=== PATIENT | male | born 1945 | race Caucasian/White ===

== ENCOUNTER 2016-12-28 07:45 | Emergency (ER) | payer OTHER ==
--- NOTE | 2016-12-28 09:28 | EDPHY ---
H & P Time Seen by Provider: 12/28/16 08:43 HPI/ROS: CHIEF COMPLAINT: Fall HISTORY OF PRESENT ILLNESS: Patient is a 71-year-old male who presents emergency department after falling while walking his dog last evening. Patient states he tripped over his dog in struck his head. He has an sure if he lost consciousness. He does state he was on the ground for 3-5 minutes unable to move. He describes complete paralysis. He slowly developed sensation back into his left arm and then all of his extremities. No numbness or tingling. This morning he denies headache. He has mild upper midline neck pain. He describes bilateral shoulder pain that is worse on the right. No chest pain or shortness of breath. REVIEW OF SYSTEMS: My complete review of systems is negative except as mentioned in the HPI. Past Medical/Surgical History: Includes coronary artery disease, high blood pressure Past surgical history: Right shoulder surgery, coronary artery bypass Smoking Status: Never smoked Physical Exam: Vitals noted GENERAL: Well-appearing, in no acute distress, alert. HEAD: Contusion on the left brow. No crepitus. EYES: PERRLA, EOMI, normal to inspection. ENT: Airway intact, no dental or oral injury, no malocclusion, no hemotympanum , normal external examination. NECK: The trachea is midline. There is no crepitus. Patient has mid upper C- spine tenderness to palpation with no step-off or deformity. RESPIRATORY: Clear to auscultation bilaterally, no rales, rhonchi or wheezing. There is no crepitus or palpable rib fractures. CVS: Regular rate and rhythm, no rubs, murmurs, or gallops. ABDOMEN: Soft, nontender, nondistended, normal bowel sounds, no bruising or abrasions. Pelvis: Stable. No tenderness palpation. Hips full range of motion. GENITAL/RECTAL: Normal external exam. BACK: Normal to inspection, no spinal tenderness, no spinal step off, no notable bruising or abrasions. SKIN: Normal color, warm, dry. No pallor or diaphoresis. EXTREMITIES: Right upper extremity: Patient has mild tenderness to palpation over his right deltoid. There is no deformity or swelling. There is a surgical scar. No visible signs of trauma. Neurovascular intact distally. Left upper extremity: Atraumatic. No visible signs of trauma. No tenderness palpation. Neurovascular intact distally. Right lower extremity: Atraumatic. No visible signs of trauma. No tenderness palpation. Neurovascular intact distally. Left lower extremity: Atraumatic. No visible signs of trauma. No tenderness palpation. Neurovascular intact distally. NEURO/PSYCH: Higher functions: Alert and Oriented x3. Normal speech and cognition. Normal mood and affect. Cranial nerves: Normal as tested. Cerebellar: Normal as tested. Good finger to nose, good [id number], normal gait. Peripheral exam: Normal motor exam. Normal sensation. Normal reflexes. Constitutional: Initial Vital Signs Temperature (C) 36.4 C 12/28/16 07:48 Heart Rate 90 12/28/16 07:48 Respiratory Rate 16 12/28/16 07:48 Blood Pressure 179/94 H 12/28/16 07:48 O2 Sat (%) 96 12/28/16 07:48 O2 Delivery Mode Room Air Allergies/Adverse Reactions: No Known Allergies Allergy (Unverified 12/28/16 07:47) Home Medications: Medication Instructions Recorded Aspirin 81mg (*) 12/28/16 Metoprolol Succinate 12/28/16 Plavix 12/28/16 Medical Decision Making ED Course/Re-evaluation: In the emergency department I discussed possible etiologies with the patient. He was placed in a C-collar triage. CT of the head and neck were ordered. Due the patient's reported paralysis an MRI of the C-spine was ordered. Discussed this with the patient and answered all his questions. I reviewed the patient's laboratory studies. No significant abnormalities. The on exam the patient had no focal neurologic deficits. Awaiting imaging results. CT of the head neck: Please refer the dictated report by Dr. Pineda. No acute disease noted. The patient does have degenerative changes in his spine. 1108: MRI of the C-spine. Please refer the dictated report by Dr. Pineda. The patient does have notable stenosis. There is cord edema C3-C4. No visible fracture or bleeding. Neurosurgery was paged. I discussed the results with the patient. I discussed the case with Dr. Jackson from Neurosurgery. His plan is come to the emergency department to evaluate the patient. I informed the patient of the plan. On recheck he was neurovascular intact distally. No focal neurologic deficits. 1155: I paged Trauma surgery to inform them of the patient's injuries. I discussed the case with Dr. Karthik Serrano. He felt the patient did not need trauma consultation at this time unless he went to the ICU. Dr. Matti Herrera saw the patient. He recommended a [place] collar and follow up with his office. Prescriptions were written by his service prior to leaving. I discussed this plan with the patient. He felt comfortable. He is given warnings prior to leaving. At time of discharge she had no focal neurologic deficits. He will return with worsening symptoms. Differential Diagnosis: My differential includes but is not limited to subarachnoid hemorrhage, subdural hematoma, epidural hematoma, fracture, spinal injury, disc herniation, cord injury - Data Points Laboratory Results: Laboratory Results 12/28/16 08:20 12/28/16 08:20 12/28/16 12/28/16 12/28/16 08:20 08:20 08:20 WBC 6.54 10^3/uL 10^3/uL (3.80-9.50) RBC 4.99 10^6/uL 10^6/uL (4.40-6.38) Hgb 17.9 g/dL H g/dL (13.7-17.5) Hct 48.5 % % (40.0-51.0) MCV 97.2 fL fL (81.5-99.8) MCH 35.9 pg H pg (27.9-34.1) MCHC 36.9 g/dL H g/dL (32.4-36.7) RDW 12.4 % % (11.5-15.2) Plt Count 193 10^3/uL 10^3/uL (150-400) MPV 9.4 fL fL (8.7-11.7) Neut % (Auto) 73.7 % % (39.3-74.2) Lymph % (Auto) 13.3 % L % (15.0-45.0) [place]bon % (Auto) 11.5 % % (4.5-13.0) Eos % (Auto) 0.6 % % (0.6-7.6) Baso % (Auto) 0.6 % % (0.3-1.7) Nucleat RBC Rel Count 0.0 % % (0.0-0.2) Absolute Neuts (auto) 4.82 10^3/uL 10^3/uL (1.70-6.50) Absolute Lymphs (auto) 0.87 10^3/uL L 10^3/uL (1.00-3.00) Absolute Monos (auto) 0.75 10^3/uL 10^3/uL (0.30-0.80) Absolute Eos (auto) 0.04 10^3/uL 10^3/uL (0.03-0.40) Absolute Basos (auto) 0.04 10^3/uL 10^3/uL (0.02-0.10) Absolute Nucleated RBC 0.00 10^3/uL 10^3/uL (0-0.01) Immature Gran % 0.3 % % (0.0-1.1) Immature Gran # 0.02 10^3/uL 10^3/uL (0.00-0.10) PT 12.7 SEC SEC (12.0-15.0) INR 0.96 (0.83-1.16) APTT 32.8 SEC SEC (23.0-38.0) Sodium 138 mEq/L mEq/L (134-144) Potassium 4.7 mEq/L mEq/L (3.5-5.2) Chloride 103 mEq/L mEq/L (97-110) Carbon Dioxide 21 mEq/l L mEq/l (22-31) Anion Gap 14 mEq/L mEq/L (8-16) BUN 11 mg/dL mg/dL (7-23) Creatinine 0.8 mg/dL mg/dL (0.7-1.3) Estimated GFR > 60 Glucose 98 mg/dL mg/dL (70-100) Calcium 9.9 mg/dL mg/dL (8.5-10.4) Departure - Departure Disposition: Home, Routine, Self-Care Clinical Impression: Cervical strain, acute Qualifiers: Encounter type: initial encounter Qualified Code(s): S16.1XXA - Strain of muscle, fascia and tendon at neck level, initial encounter Head contusion Qualifiers: Encounter type: initial encounter Laterality: left Cervical spinal cord injury Qualifiers: Encounter type: initial encounter Qualified Code(s): S14.109A - Unspecified injury at unspecified level of cervical spinal cord, initial encounter Condition: Good Instructions: Gabapentin (By mouth), Oxycodone, Rapid Release (By mouth), Cervical Spinal Stenosis (ED) Additional Instructions: Return with increasing weakness, numbness, headache, neck pain or any other concerns. You had an abnormal MRI which needs close follow-up with Neurosurgery. Take your medications as prescribed as directed. Referrals: YANET GANT [Other] - As per Instructions Dennis Herrera MD [Medical Doctor] - 5-7 days, if not improved
[2016-12-28 09:31] LABS: % IMMATURE GRANULYOCYTES 0.3 % (0.0-1.1); ABSOLUTE IMMATURE GRANULOCYTES 0.02 10^3/uL (0.00-0.10); ADD DIFF? NO; ADD MORPH? NO; ADD SCAN? NO; ATYPICAL LYMPHOCYTE FLAG 10 (0-99); FRAGMENT RBC FLAG 0 (0-99); HEMATOCRIT 48.5 % (40.0-51.0); HEMOGLOBIN 17.9 g/dL (13.7-17.5); LEFT SHIFT FLG 0 (0-99); LIPEMIA HEMOLYSIS FLAG 90 (0-99); MEAN CELL HEMOGLOBIN 35.9 pg (27.9-34.1); MEAN CELL HEMOGLOBIN CONCENTR. 36.9 g/dL (32.4-36.7); MEAN CELL VOLUME 97.2 fL (81.5-99.8); MEAN PLATELET VOLUME 9.4 fL (8.7-11.7); PLATELET CLUMPS FLAG 10 (0-99); PLATELET COUNT 193 10^3/uL (150-400); RED BLOOD CELL COUNT 4.99 10^6/uL (4.40-6.38); RED CELL DISTRIBUTION WIDTH 12.4 % (11.5-15.2)
[2016-12-28 09:32] LABS: INR 0.96 (0.83-1.16); PROTIME(PATIENT) 12.7 SEC (12.0-15.0)
[2016-12-28 09:33] LABS: APTT 32.8 SEC (23.0-38.0)
[2016-12-28 09:40] LABS: ANION GAP 14 mEq/L (8-16); CALCIUM 9.9 mg/dL (8.5-10.4); CARBON DIOXIDE 21 mEq/l (22-31); CHLORIDE 103 mEq/L (97-110); CREATININE 0.8 mg/dL (0.7-1.3); GLOMERULAR FILTRATION RATE > 60; GLUCOSE 98 mg/dL (70-100); POTASSIUM 4.7 mEq/L (3.5-5.2); SODIUM 138 mEq/L (134-144)
[2016-12-28 12:07] VITALS: TEMP 98.2; O2SAT 90
[2016-12-28 12:44] VITALS: BP 153/68; PULSE 78; RESP 16
--- NOTE | 2016-12-28 13:45 | GHP ---
DATE OF ADMISSION: 12/28/2016 CHIEF COMPLAINT: Fall with 3-5 minutes of transient quadriplegia. HISTORY OF PRESENT ILLNESS: The patient is a 71-year-old male, who was seen in the emergency depart [facility] both by myself and Dr. Herrera at 11:34 a.m. on 12/28/2016. He presented to the emergency [facility] after having a fall last night while walking his dog, believed he tripped over the dog. He did strike his head. There was no apparent loss of consciousness. He presents with his at the [facility]. He did state that he was on the ground for approximately 3-5 minutes, unable to move. He de scribed complete paralysis that lasted for that time period. He came in today to the emergency depa rtment. He does have a history of CABG x3, and is on Plavix. His financial systems manager is Dr. Silva. He slowly developed sensation back to his left arm and then all of his extremities. Currently he desc ribes no numbness or tingling. No upper or lower extremity pain except for little bit of pain in rafael th shoulders with the right worse than the left that radiates a little bit down into the deltoid. H e has no weakness at this time. He is ambulating well. He had an MRI of the cervical spine which s howed some cord signal changes at C3-[address] Saira Escobar consulted Dr. Rivera. A page was plac ed to our office, and I saw the patient approximately 15 minutes later in the emergency department. Currently in the emergency department, he has no upper or lower extremity complaints except a littl e bit of pain, as mentioned above, in the right shoulder greater than the left with a little pain ra diating down in the deltoid. He has no weakness in upper or lower extremities. He is able to walk well. He is tolerating a collar fine. He denies any chest pain or shortness of breath. No abdomina l pain or complaints. He has no loss of bowel or bladder. No saddle numbness or anesthesia. He is awake, alert, oriented to name, place, location, date, time, and situation. PAST MEDICAL HISTORY: 1. Coronary artery disease. 2. Hypertension. 3. Right hearing loss, no changes. PAST SURGICAL HISTORY: 1. Right shoulder surgery. 2. Coronary artery bypass graft x3. 3. Pending cataract surgery. MEDICATIONS: 1. Metoprolol. 2. Gout medication. 3. Plavix. ALLERGIES: No known drug allergies. FAMILY HISTORY: Noncontributory. SOCIAL HISTORY: Patient is . He has never smoked. He does not use illicit drugs. No risk factors for HIV or AIDS. IMMUNIZATIONS: Reportedly up to date. TRAVEL: No recent travel. REVIEW OF SYSTEMS: Complete review of systems in conjunction with above noted for the following: H EENT: Mild headache. No diplopia. No blurred vision. No loss of visual field. No hearing loss, ti nnitus or vertigo. PULMONARY: No cough, sputum production, hemoptysis, dyspnea or pleuritic chest p ain. CARDIAC: No chest pain or pressure. No palpitations. GI: No weight loss or gain. No nausea, vomiting, or diarrhea. : No dysuria, hematuria, nocturia, urgency or frequency. NEUROLOGIC: Pat ient denies any dizziness, syncope, seizures, vertigo or current paresthesias. No current weakness. He did have as noted above in the HPI. PSYCHIATRIC: No suicidality or homicidality. PHYSICAL EXAMINATION: GENERAL: This is an awake, alert, oriented male, in no acute distress. He i s able to follow commands appropriately. VITAL SIGNS: Most recent blood pressure 153/68 with a MAP of 96, 78 heart rate, 16 respirations, 90% on room air and a temperature of 36.8. HEENT: Head is normocephalic except for abrasion noted to the left frontal temporal area. It was clean, dressed by emergency room. Pupils are equal, round, reactive to light. EOMIs intact. Full visual muniz by confrontation. Ears patent. Nose is patent. NECK: Soft and supple. No step-off or midline deform ity. Range of motion was not tested. Patient in cervical collar. RESPIRATORY AND CARDIAC: Deferre d. ABDOMEN: Soft, nontender. No peritoneal signs. AND RECTAL: Deferred. NEUROLOGIC: Patient is awake, alert, oriented to name, place, location, date, time, and situation. Memory is intact to immediate, past, and current events. Speech: No aphasia, dysarthria, dysphonia. Cranial nerves 2-1 2 grossly intact. Motor: Patient has 5/5 strength in all muscle groups of bilateral upper and lower extremities to include deltoids, biceps, triceps, brachioradialis, wrist flexion, extensors, headwaitress, intrinsic fingers, iliopsoas, quadriceps, hamstring, plantar flexion, dorsiflexion, EHL testing. Sen sation is grossly intact to light touch throughout all dermatome distributions of upper and lower ex tremities. Negative straight leg raise. Negative HOLLI test. Reflexes of biceps, triceps, brachio radialis, knee jerk, and ankle jerk are 2+/4. Toes are downgoing bilaterally. Gilbert is negative. Babinski negative. No evidence of clonus. MEDICAL DECISION MAKING/DIAGNOSTIC STUDIES: Laboratory tests obtained 12/28/2016 show a white count of 6.54 with an H and H of 17.9 and 48.5, with a platelet count of 193. Coags on 12/28/2016 show a PT of 12.7, INR 0.96 and a PTT of 32.8. Chemistry on 12/28/2016: Sodium 138, potassium 4.7 chlorid e 103, CO2 21, BUN 11, creatinine 0.8, and glucose of 98. CT scan of the head obtained 12/28/2016 shows some mild atrophy. No acute hemorrhage, hydrocephalus or mass effect. There is some cerebral vascular arteriosclerosis. No definite acute infarct. No epi dural or subdural hematoma. CT scan of the cervical spine obtained 12/28/2016 shows no definite fracture. 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 A t C3-4, there is severe central canal stenosis secondary to a degenerative retrolisthesis with dorsa l disc osteophyte complex noted. An MRI was recommended. Shoulder x-rays were reviewed per Dr. Chopra and Dr. Escobar, but no acute abnormality was noted. Cervical spine MRI obtained 12/28/2016 shows at C3-4 there was cord compression and edema secondary to moderate degenerative disk disease with degenerative retrolisthesis, dorsal disc osteophyte compl ex and bilateral facet arthropathy resulting in cord compression deformity with resulting edema, as well as bilateral neural foramina stenosis. At C5-6, there is moderate to severe central canal sten osis and cord compression deformity with moderate to severe bilateral neural foraminal stenosis as w ell. There were some endplate discogenic changes at several levels with C7 superior endplate noted. No acute fracture was noted. IMPRESSION: 1. Transient quadriplegia from fall on 12/27/2016 at 8:00 p.m. 2. Normal neurologic exam with right shoulder and left shoulder pain with some radiation to the del toid with MRI that shows C3-4 and C5-6 stenosis. There are cord changes noted at C3-4 level as well. 3. History of CABG. The patient is on Plavix. PLAN AND DISCUSSION: The patient is a 71-year-old male, who was seen in the emergency department [facility] by myself and Dr. Herrera 11:34 a.m. on 12/28/2016. He was evaluated. He has normal strength, nor mal motor exam. No upper motor neuron signs. He does have some trace pain in the bilateral shoulde rs with the right worse than the left with some radiation into the deltoid. We recommended a good c ervical collar as he had a Heard collar on. I would recommend a [place] Chin J or Vina-type collar . He will wear this at all times. Recommended follow up with us in our office in a couple weeks fo r a recheck and evaluation. I will also start him on gabapentin 300 mg p.o. three times daily. A pr escription for pain medication was written for oxycodone 5 mg, #90, 1-2 tablets every 6-8 hours as n eeded for pain. The patient was given the contact number for our office, was instructed to call our office for a followup appointment. I will speak with our clinical coordinator, Frieda, who will work on getting appointment for him as well to make the transition from the ER to outpatient setting and to our office smoother. Both patient and understand, agree. Dr. Herrera did see and exami ne and evaluate the patient as well. All questions and concerns were answered. /[id number]/MODL
== END 2016-12-28 12:51 | disposition home or self-care (01) ==
DX: S00.93XA Contusion of unspecified part of head, initial encounter (principal); S16.1XXA Strain of muscle, fascia and tendon at neck level, initial encounter; S14.109A Unspecified injury at unspecified level of cervical spinal cord, initial encounter; I25.810 Atherosclerosis of coronary artery bypass graft(s) without angina pectoris; Z79.82 Long term (current) use of aspirin; W01.198A Fall on same level from slipping, tripping and stumbling with subsequent striking against other object, initial encounter; Y99.8 Other external cause status; Y93.01 Activity, walking, marching and hiking

== ENCOUNTER → 2017-01-23 | Outpatient (CLI) | payer OTHER, MEDICARE | LOC: BHFA 09:45 | PROVIDERS: ATTEND Internal Medicine Interventional Cardiology | DX: Z01.810 Encounter for preprocedural cardiovascular examination (principal); I21.29 ST elevation (STEMI) myocardial infarction involving other sites ==

== ENCOUNTER 2017-01-30 12:48 | Observation (INO) | payer OTHER, MEDICARE ==
[2017-01-30] MEDS ORDERED: FAMOTIDINE 20 MG TAB PO ONE (12:53)
[2017-01-30] MEDS ORDERED: NS 1,000 ML IV ONE (12:53)
[2017-01-30] MEDS ORDERED: DIAZEPAM 5 MG TAB PO ONE (12:53)
[2017-01-30] MEDS ORDERED: diphenhydrAMINE 25 MG CAP PO ONE (12:53)
[2017-01-30] MEDS ORDERED: ASPIRIN EC 325 MG TAB PO ONE (12:53)
--- NOTE | 2017-01-30 13:19 | CPEKG ---
Heart Rate: 69 RR Interval: 870 P-R Interval: 156 QRSD Interval: 108 QT Interval: 424 QTC Interval: 455 P [place]: 61 QRS [place]: 18 T Wave [place]: 38 EKG Severity - BORDERLINE ECG - EKG Impression: SINUS RHYTHM EKG Impression: PROBABLE LEFT ATRIAL ABNORMALITY EKG Impression: MINIMAL ST ELEVATION, ANTERIOR LEADS Electronically Signed By: Aneudy Anand 30-Jan-2017 20:46:33
[2017-01-30] MEDS ORDERED: CLOPIDOGREL BISULFATE 75 MG TAB ONE (13:38)
[2017-01-30 13:49] LABS: % IMMATURE GRANULYOCYTES 0.4 % (0.0-1.1); ABSOLUTE IMMATURE GRANULOCYTES 0.03 10^3/uL (0.00-0.10); ADD DIFF? NO; ADD MORPH? NO; ADD SCAN? NO; ATYPICAL LYMPHOCYTE FLAG 10 (0-99); FRAGMENT RBC FLAG 0 (0-99); HEMATOCRIT 47.4 % (40.0-51.0); HEMOGLOBIN 16.4 g/dL (13.7-17.5); LEFT SHIFT FLG 0 (0-99); LIPEMIA HEMOLYSIS FLAG 90 (0-99); MEAN CELL HEMOGLOBIN 33.7 pg (27.9-34.1); MEAN CELL HEMOGLOBIN CONCENTR. 34.6 g/dL (32.4-36.7); MEAN CELL VOLUME 97.5 fL (81.5-99.8); PLATELET CLUMPS FLAG 0 (0-99); PLATELET COUNT 176 10^3/uL (150-400); RED BLOOD CELL COUNT 4.86 10^6/uL (4.40-6.38); RED CELL DISTRIBUTION WIDTH 11.9 % (11.5-15.2)
[2017-01-30 14:04] LABS: INR 1.01 (0.83-1.16); PROTIME(PATIENT) 13.2 SEC (12.0-15.0)
[2017-01-30 14:05] LABS: ANION GAP 12 mEq/L (8-16); CALCIUM 9.6 mg/dL (8.5-10.4); CARBON DIOXIDE 22 mEq/l (22-31); CHLORIDE 106 mEq/L (97-110); CHOLESTEROL 216 mg/dL (140-220); CHOLESTEROL/HDL RATIO 2.81 RATIO (1.00-4.97); CREATININE 0.8 mg/dL (0.7-1.3); GLOMERULAR FILTRATION RATE > 60; GLUCOSE 90 mg/dL (70-100); HIGH DENSITY LIPOPROTEIN 77 mg/dL (40-65); LDL/HDL RATIO 1.52 RATIO (1.00-3.64); LOW DENSITY LIPOPROTEIN 117 mg/dL (80-100); MAGNESIUM 2.1 mg/dL (1.6-2.3); NON-HIGH DENSITY LIPOPROTEIN 139 mg/dL (90-129); POTASSIUM 4.6 mEq/L (3.5-5.2); SODIUM 140 mEq/L (134-144); TRIGLYCERIDE 114 mg/dL (40-150); VERY LOW DENSITY LIPOPROTEINS 22 mg/dL (8-25)
[2017-01-30] MEDS ORDERED: fentaNYL 100 MCG/2 ML INJ ONE ×2 (14:53→15:34)
[2017-01-30] MEDS ORDERED: LIDOCAINE 1% 30 ML SDV ONE (14:53)
[2017-01-30] MEDS ORDERED: MIDAZOLAM 2 MG/2 ML VIAL ONE ×2 (14:54→15:35)
[2017-01-30] MEDS ORDERED: IOPAMIDOL (ISOVUE 370) 100 ML BTL IV ONE ×2 (14:55→15:38)
[2017-01-30] MEDS ORDERED: BIVALIRUDIN 250 MG/5 ML VIAL IV ONE (15:33)
[2017-01-30] MEDS ORDERED: NITROGLYCERIN 1,500 MCG/15 ML VIAL MISC ONE (15:39)
[2017-01-30] MEDS ORDERED: HYDROCODONE/APAP 5/325 TAB PO PRN (18:23)
[2017-01-30] MEDS ORDERED: OXYCODONE/APAP 5/325 TAB PO PRN (18:24)
[2017-01-30] MEDS ORDERED: ONDANSETRON 4 MG/2 ML VIAL IVP PRN (18:25)
[2017-01-30] MEDS ORDERED: NITROGLYCERIN 0.4 MG BTL SL PRN (18:26)
[2017-01-30] MEDS: METOPROLOL TARTRATE 25 MG TAB PO SCH (20:44)
--- NOTE | 2017-01-30 23:36 | CPIP ---
[f rep st] INVASIVE CARDIAC PROCEDURE DATE OF PROCEDURE: 01/30/2017 PROCEDURES: 1. Coronary angiography. 2. Bypass graft angiography. 3. Left ventriculography. INDICATION: 1. Known coronary artery disease status post previous bypass grafting surgery. 2. High risk abnormal nuclear stress test. ACCESS: Patient was prepped and draped in sterile fashion. 1% lidocaine was used to anesthetize th e right inguinal region. A 6-Tongan introducer sheath was placed selectively into the right common femoral artery via modified Seldinger technique. CORONARY ANGIOGRAPHY: A 6-Tongan JL4 was advanced to the left main coronary artery and images obtai andi. The left main coronary artery bifurcated into an LAD and circumflex coronary arteries. The le ft main coronary artery had a distal 80% stenosis present. The left anterior descending coronary ar rupesh was diffusely diseased. In the proximal portion of the left anterior descending coronary arter y, there was a discrete 80% stenosis present. In the mid vessel there was a discrete 90% stenosis p resent. The first diagonal artery was a lerslria-ez-nsvob size vessel. The first diagonal artery h ad a proximal 75% stenosis present. The second diagonal artery was a smaller vessel. The 2nd diago nal artery was 100% occluded at its ostium. The distal vessel was being filled via saphenous vein g raft to diagonal artery. The circumflex coronary artery is 100% occluded in its ostial segment. Di stal flow is via pfgz-lm-usrt collaterals. A 6-Tongan JR4 was advanced to the right coronary artery and images obtained. The right coronary artery was dominant. The right coronary artery was 100% o ccluded in the ostial segment. Distal flow was via saphenous vein graft to right coronary artery. BYPASS GRAFT ANGIOGRAPHY: A 6-Tongan JR4 was advanced through the saphenous vein graft to the 2nd d iagonal artery. The saphenous vein graft to 2nd diagonal artery was widely patent. The catheter wa s then advanced through the saphenous vein graft to the right coronary artery. The saphenous vein g raft to the right coronary artery was widely patent. The catheter was then advanced to the ARNDT to LAD graft. The ARNDT to LAD graft is 100% occluded. LEFT VENTRICULOGRAPHY: A 6-Tongan pigtail catheter was advanced in the left ventricle and images ob tained. Left ventricle was normal size and had reduced systolic function. Estimated ejection fract ion was 35%. COMPLICATIONS: None. CONCLUSIONS: 1. Left main and 3 vessel coronary artery disease. 2. Patent saphenous vein graft to right coronary artery. 3. Patent saphenous vein graft to 2nd diagonal artery. 4. Reduced left ventricular systolic function with an estimated ejection fraction of 35%. 5. Plan is to present at cardiovascular conference for revascularization options. /[id number]/MODL
[2017-01-31 05:49] VITALS: RESP 18
[2017-01-31 07:03] VITALS: BP 139/71; PULSE 68; TEMP 98; O2SAT 94
[2017-01-31] MEDS: METOPROLOL TARTRATE 25 MG TAB PO SCH (09:14)
--- NOTE | 2017-01-31 12:52 | GDS ---
[f rep st] DISCHARGE SUMMARY ADMISSION DIAGNOSES: 1. Abnormal nuclear stress test. 2. Planned cardiac angiogram with possible stent. 3. Status post remote coronary artery bypass graft. 4. Hypertension. DISCHARGE DIAGNOSES: 1. 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 2. New onset cardiomyopathy with ejection fraction 35%. 3. Hypertension. HOSPITAL COURSE: This gentleman was seen in clinic for a surgical consult for planned cervical spine neck surgery. He had not been seen in clinic for several years. He was being followed by his PCP. He had no chest pain or anginal symptoms at that time. A nuclear stress test was ordered for further cardiac evaluation prior to cervical spine surgery. Earlier this week, he had a nuclear treadmill stress test at the clinic, which was read as abnormal with ST and T-wave changes. He was set up for cardiac angiogram on 01/30/2017. Dr. Aneudy Perez did find that there was occlusion of the ARNDT to LAD graft. His ejection fraction was diminished, estimated at 35%. He was recovered, and Dr. Perez visited with he and his about the need for further intervention of the total occlusion of the ARNDT to LAD graft, consideration for possible redo bypass. Dr. Perze asked that he visit with Dr. Solo Villaseñor, cardiovascular surgeon, regarding this. He and his did visit with Dr. Villaseñor last evening. No decisions have been made at this point. The plan is to take it to cardiac case conference for further cardiology recommendations. He has done well post cardiac angiogram. His monitor shows a regular sinus rhythm. He has been up ambulating with no shortness of breath, chest pain or dizziness. At this time, he currently is stable for discharge. MEDICATIONS: He will go home on Plavix 75 mg daily, Lopressor 12.5 mg twice daily, aspirin 81 mg daily, herbal supplements daily. ALLERGIES: He has no known allergies. PHYSICAL EXAM: VITAL SIGNS: On day of discharge, blood pressure 139/71, heart rate 68 and regular, oxygen saturation 94%. Temperature 36.7 Celsius. Telemetry shows a regular sinus rhythm with no arrhythmias. CARDIAC: Heart rate is regular. No murmurs, rubs, gallops. RESPIRATORY: Lung sounds are clear to auscultation. No wheezes, rales, or rhonchi. EXTREMITIES: Peripheral extremities, no edema. Peripheral pulses 2+ bilaterally. Right groin site has no hematoma, no bleeding or ecchymosis. DISCHARGE PLAN: He will continue on his Plavix at this time. Should the decision for surgery be determined, he will need to stop the Plavix 5-7 days prior to surgery. He will continue on Lopressor at 12.5 mg twice daily at this time. Further recommendations regarding the diminished ejection fraction, which is at 35% and a new finding. He will likely be switched to carvedilol for management of the ejection fraction, if it remains reduced. Dr. Perez will present this case at Case Conference tomorrow, February 02, 2017. At that time, he will get further recommendations from the cardiology group, along with Dr. Villaseñor, who has already visited with Dr. Perez and with the patient. Dr. Aneudy Perez will call the patient tomorrow with the recommended decision and with further options for treatment. At this time, he currently is stable for discharge. /[id number]/MODL MTDD
== END 2017-01-31 11:33 | disposition home or self-care (01) ==
LOC: FCATH 12:48 → F2W 17:12
PROVIDERS: ADMIT Internal Medicine Cardiovascular Disease; ATTEND Internal Medicine Cardiovascular Disease
PROC: 4A023N7 Measurement of Cardiac Sampling and Pressure, Left Heart, Percutaneous Approach (ICD-10-PCS; principal; 2017-01-30)
PROC: B2031ZZ Plain Radiography of Multiple Coronary Artery Bypass Grafts using Low Osmolar Contrast (ICD-10-PCS; principal; 2017-01-30)
PROC: B2151ZZ Fluoroscopy of Left Heart using Low Osmolar Contrast (ICD-10-PCS; principal; 2017-01-30)
DX: R94.39 Abnormal result of other cardiovascular function study (principal); Z01.810 Encounter for preprocedural cardiovascular examination; I25.810 Atherosclerosis of coronary artery bypass graft(s) without angina pectoris; I25.82 Chronic total occlusion of coronary artery; I10 Essential (primary) hypertension; E78.5 Hyperlipidemia, unspecified; I25.2 Old myocardial infarction; M10.9 Gout, unspecified; Z95.1 Presence of aortocoronary bypass graft; Z95.5 Presence of coronary angioplasty implant and graft; Z79.82 Long term (current) use of aspirin
CPT/HCPCS: 93005; 93459; J1644; J2250; J3010; Q9967; A9500; J0583

== ENCOUNTER → 2017-01-30 | Outpatient (CLI) | payer OTHER, MEDICARE | LOC: BHFA 09:30 | PROVIDERS: ATTEND Internal Medicine Cardiovascular Disease | DX: Z01.810 Encounter for preprocedural cardiovascular examination (principal); I25.10 Atherosclerotic heart disease of native coronary artery without angina pectoris | CPT/HCPCS: 78452; 93017; A9500 ==

== ENCOUNTER 2017-02-07 13:30 | Inpatient (IN) | payer OTHER, MEDICARE ==
[2017-02-12] MEDS ORDERED: VERAPAMIL 5 MG, NITROGLYCERIN 2.5 MG, HEPARIN 500 UNIT, SODIUM BICARBONATE 0.2 MEQ in L... MISC ONE (06:00)
[2017-02-12] MEDS ORDERED: MANNITOL 25% 12.5 GM/50 ML VIAL IV ONE (06:00)
[2017-02-12] MEDS ORDERED: niCARdipine/NACL 200 ML IV SCH (06:00)
[2017-02-12] MEDS ORDERED: CITRATE DEXTROSE SOLN 500 ML BAG MISC ONE (06:00)
[2017-02-12] MEDS ORDERED: PHENYLEPHRINE HCL 50 MG in NS 250 ML IV ONE (06:00)
[2017-02-12] MEDS ORDERED: AMINOCAPROIC ACID 5 GM/20 ML VIAL IV ONE (06:00)
[2017-02-12] MEDS ORDERED: NOREPINEPHRINE BITARTRATE 16 MG in NS 250 ML IV ONE (06:00)
[2017-02-12] MEDS ORDERED: NS 1,000 ML IV ONE (06:00)
[2017-02-12] MEDS ORDERED: LIDOCAINE 1% 5 ML SDV ID PRN (06:00)
[2017-02-12] MEDS ORDERED: SODIUM BICARBONATE 20 MEQ, LIDOCAINE 1% 10 ML in NORMOSOL-R 1,000 ML MISC ONE (06:00)
[2017-02-12] MEDS ORDERED: CHLORHEXIDINE GLUC HIBICLENS 118 ML BTL TP SCH (06:00)
[2017-02-12] MEDS ORDERED: MUPIROCIN 2% 22 GM OINT NS ONE (06:00)
[2017-02-12] MEDS ORDERED: ceFAZolin 2 GM/DEXTROSE 100 ML IV ONE (06:00)
[2017-02-12] MEDS ORDERED: DOBUTamine 500 MG in D5W 250 ML IV SCH (06:00)
[2017-02-12] MEDS ORDERED: INSULIN REGULAR HUMAN 100 UNIT in NS 100 ML IV ONE (06:00)
[2017-02-12] MEDS ORDERED: LIDOCAINE 2% 100 MG/5 ML SYR ONE (10:34)
[2017-02-12] MEDS ORDERED: CITRATE DEXTROSE SOLN 500 ML BAG ONE (10:34)
[2017-02-12] MEDS ORDERED: CALCIUM CHLORIDE 1 GM/10 ML INJ ONE ×2 (10:34→10:48)
[2017-02-12] MEDS ORDERED: AMINOCAPROIC ACID 5 GM/20 ML VIAL ONE ×2 (10:34→10:49)
[2017-02-12] MEDS ORDERED: ALBUMIN 5% 250 ML BOTTLE IV ONE (10:34)
[2017-02-12] MEDS ORDERED: AMIODARONE HCL 150 MG/3 ML VIAL ONE ×2 (10:35→10:50)
[2017-02-12] MEDS ORDERED: methylPREDNISolone SOD SUCC 1 GM/8 ML VIAL ONE (10:35)
[2017-02-12] MEDS ORDERED: HEPARIN 10,000 UNIT/10 ML MDV ONE ×2 (10:35→10:50)
[2017-02-12] MEDS ORDERED: MAGNESIUM SULFATE 1 GM/2 ML VIAL ONE (10:35)
[2017-02-12] MEDS ORDERED: MILRINONE/DEXTROSE/100 ML BAG IV ONE (10:48)
[2017-02-12] MEDS ORDERED: PROTAMINE SULFATE 50 MG/5 ML VIAL IVP ONE (10:48)
[2017-02-12] MEDS ORDERED: CEFAZOLIN 2 GM/DEXTROSE/100 ML BAG IV ONE ×2 (10:48→12:02)
[2017-02-12] MEDS ORDERED: POTASSIUM Cl (KCl) 20 MEQ/50 ML BAG IV ONE (10:49)
[2017-02-12] MEDS ORDERED: DOPamine/DEXTROSE/250 ML BAG IV ONE (10:49)
[2017-02-12] MEDS ORDERED: NA BICARBONATE 50 MEQ/50 ML VIAL ONE (10:49)
[2017-02-12] MEDS ORDERED: ADENOSINE 6 MG/2 ML VIAL ONE (10:50)
[2017-02-12] MEDS ORDERED: niCARdipine/NACL/200 ML BAG IV ONE (10:50)
[2017-02-12] MEDS ORDERED: ceFAZolin 1 GM VIAL ONE (10:51)
[2017-02-12] MEDS ORDERED: MUPIROCIN 2% 22 GM OINT ONE (10:53)
[2017-02-12] MEDS ORDERED: fentaNYL 250 MCG/5 ML INJ ONE (11:51)
[2017-02-12] MEDS ORDERED: PROPOFOL/EMULSION 500 MG/50 ML BOTTLE IV ONE (11:51)
[2017-02-12] MEDS ORDERED: HYDROmorphONE/DILAUDID 2 MG/ML INJ ONE ×2 (11:52→16:44)
[2017-02-12] MEDS ORDERED: VERAPAMIL 5 MG/2 ML VIAL ONE (11:57)
[2017-02-12] MEDS ORDERED: PAPAVERINE HCL 60 MG/2 ML SDV ONE (11:57)
[2017-02-12] MEDS ORDERED: MINERAL OIL 10 ML VIAL TP ONE (11:57)
[2017-02-12] MEDS ORDERED: MIDAZOLAM 2 MG/2 ML VIAL ONE (12:05)
[2017-02-12] MEDS ORDERED: MAGNESIUM SULF 2 GM/WATER 50 ML BAG IV ONE (12:45)
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
[2017-02-12] MEDS ORDERED: ONDANSETRON 4 MG/2 ML VIAL IVP PRN (17:54)
[2017-02-12] MEDS ORDERED: ACETAMINOPHEN 325 MG TAB PO PRN (17:54)
[2017-02-12] MEDS ORDERED: BISACODYL 10 MG SUPP PR PRN (17:54)
[2017-02-12] MEDS ORDERED: D50W 25 GM/50 ML SYR IVP PRN (17:54)
[2017-02-12] MEDS ORDERED: METOCLOPRAMIDE 10 MG/2 ML VIAL IVP PRN (17:54)
[2017-02-12] MEDS ORDERED: PANTOPRAZOLE SODIUM 40 MG in NS 100 ML IV ONE (17:54)
[2017-02-12] MEDS ORDERED: LACTULOSE 20 GM/30 ML UDCUP PO PRN (17:54)
[2017-02-12] MEDS ORDERED: POLYETHYLENE GLYCOL 3350 17 GM PKT PO PRN (17:54)
[2017-02-12] MEDS ORDERED: POTASSIUM Cl (KCl) 50 ML IV PRN (17:54)
[2017-02-12] MEDS ORDERED: MAGNESIUM SULF 2 GM/WATER 50 ML IV ONE (17:54)
[2017-02-12] MEDS ORDERED: ACETAMINOPHEN 650 MG SUPP PR PRN (17:54)
[2017-02-12] MEDS ORDERED: ONDANSETRON DISINTEGRATING 4 MG TAB PO PRN (17:54)
[2017-02-12] MEDS ORDERED: CEPACOL LOZENGE PO PRN (17:54)
[2017-02-12] MEDS ORDERED: SODIUM CL NASAL 45 ML BTL EACHNARE PRN (17:54)
[2017-02-12] MEDS ORDERED: MAGNESIUM HYDROXIDE 30 ML UDCUP PO PRN (17:54)
[2017-02-12] MEDS ORDERED: fentaNYL 100 MCG/2 ML INJ IVP PRN (17:54)
[2017-02-12] MEDS ORDERED: MEPERIDINE 25 MG/ML SYR IVP PRN (17:54)
[2017-02-12] MEDS ORDERED: NS 1,000 ML IV SCH (18:00)
[2017-02-12] MEDS ORDERED: INSULIN REGULAR HUMAN 100 UNIT in NS 100 ML IV SCH (18:00)
[2017-02-12] MEDS ORDERED: ALBUMIN 5% 500 ML BOTTLE IV ONE (18:26)
[2017-02-12] MEDS ORDERED: ALBUMIN 5% 500 ML IV ONE (18:30)
[2017-02-12] MEDS ORDERED: DEXMEDETOMIDINE HCL 400 MCG in NS 100 ML IV SCH (19:00)
[2017-02-12 20:13] LABS: BASE EXCESS -2.7 mEq/L (-2.5-2.5); BICARBONATE 23 mEq/L (22-26); MEASURED OXYGEN SATURATION 94 % (92-95); PCO2 42 mmHg (34-38); PO2 73 mmHg (65-75); TCO2 24 mEq/L (23-27)
[2017-02-12 20:14] LABS: END TIDAL CO2 33; SIMV YES
[2017-02-12 20:15] LABS: O2 CONCENTRATIION 70 % (0-100); P/F RATIO 104 RATIO; PATIENT RATE 18; PIP 27.6; PRESSURE SUPPORT 10
[2017-02-12] MEDS: FAMOTIDINE 20 MG/NACL 50 ML IV SCH (20:21)
[2017-02-12] MEDS: CHLORHEXIDINE GLUCONATE 15 ML UDL PO SCH (22:13)
[2017-02-12] MEDS: ceFAZolin 2 GM/DEXTROSE 100 ML IV SCH (22:13)
[2017-02-12] MEDS: MUPIROCIN 2% 22 GM OINT NS SCH (22:14)
[2017-02-12 22:15] LABS: BICARBONATE 22 mEq/L (22-26); MEASURED OXYGEN SATURATION 94 % (92-95); PCO2 37 mmHg (34-38); PO2 73 mmHg (65-75); TCO2 23 mEq/L (23-27)
[2017-02-12 22:18] LABS: SIMV YES
[2017-02-12 22:19] LABS: PATIENT RATE 18; PRESSURE SUPPORT 10
[2017-02-12 22:20] LABS: END TIDAL CO2 30
[2017-02-12 22:21] LABS: O2 CONCENTRATIION 50 % (0-100); P/F RATIO 146 RATIO
[2017-02-12] MEDS: ALBUMIN 5% 250 ML IV PRN ×2 (23:12→23:38)
[2017-02-12 23:50] LABS: BASE EXCESS -1.6 mEq/L (-2.5-2.5); BICARBONATE 23 mEq/L (22-26); MEASURED OXYGEN SATURATION 92 % (92-95); PCO2 39 mmHg (34-38); PO2 66 mmHg (65-75); TCO2 24 mEq/L (23-27)
[2017-02-12 23:52] LABS: END TIDAL CO2 31; O2 CONCENTRATIION 40 % (0-100); P/F RATIO 165 RATIO; PATIENT RATE 18; SIMV YES
[2017-02-12 23:53] LABS: PRESSURE SUPPORT 10
[2017-02-13] MEDS ORDERED: NOREPINEPHRINE BITARTRATE 16 MG in NS 250 ML IV SCH (00:30)
[2017-02-13] MEDS ORDERED: ALBUMIN 5% 500 ML IV ONE (00:30)
[2017-02-13 04:14] LABS: CALCULATED OXYGEN SATURATION 99 % (92-95)
[2017-02-13 04:14] LABS: CALCULATED OXYGEN SATURATION 93 % (92-95)
[2017-02-13] MEDS: HYDROCODONE/APAP 5/325 TAB PO PRN ×7 (05:07→21:29)
[2017-02-13] MEDS: ceFAZolin 2 GM/DEXTROSE 100 ML IV SCH ×3 (05:10→21:36)
--- NOTE | 2017-02-13 05:18 | GOP ---
[f rep st] OPERATIVE REPORT DATE OF OPERATION: 02/12/2017 SURGEON: Solo Villaseñor DO BLOWING WEASAND: Joi Garrison, PAC. ANESTHESIOLOGIST: Yury Cruz MD. PREOPERATIVE DIAGNOSIS: Severe 3-vessel disease with moderate to severe LV dysfunction and moderate mitral insufficiency. POSTOPERATIVE DIAGNOSIS: Severe 3-vessel disease with moderate to severe LV dysfunction and moderat e mitral insufficiency. PROCEDURE PERFORMED: 1. Reoperation coronary bypass grafting x4 with right internal mammary artery to the LAD, saphenous vein graft to the first diagonal, lateral circumflex, and PDA. 2. Mitral ring annuloplasty with a #32 Physio annuloplasty ring. 3. Endoscopic vein harvest. 4. This was performed as a reoperation. FINDINGS: Patient was noted to have severe 3-vessel disease. His previous left internal mammary ar rupesh to the LAD was occluded. His ejection fraction was 35% preoperatively. Intraoperative transes ophageal echo confirmed worse mitral regurg than anticipated preoperatively from echoes, and it was reviewed by Dr. Perez, who felt it was at least moderate and should be repaired. I got verbal cons ent from his since that was not part of the preoperative planning. DESCRIPTION OF PROCEDURE: He was prepped and draped in sterile classical manner. Repeat median deng rnotomy was performed. Marsupialization of the heart was then conducted without difficulty, avoidin g the previous vein grafts. The vein graft to the diagonal was an extremely small diagonal. It was widely patent and considered an insignificant vessel. The first diagonal was a 1.5 mm vessel, the lateral circumflex was a 2 mm vessel, and the PDA was a 3 mm vessel with a diseased vein graft to th at. After marsupializing the heart, the right internal mammary artery was harvested. It was a good quality vessel with good flow. He was heparinized. We then cannulated the patient with bicaval ca nnulas based on the transesophageal echo intraoperatively. Cardiopulmonary bypass was begun, and th en cardioplegic arrest was obtained with antegrade cardioplegia, retrograde cardioplegia, topical hy pothermia, and systemic cooling. We then exposed the grafts, deciding where we were going to graft the patient, and the circumflex was a diffusely diseased vessel in its proximal course with multiple stents extending quite far out. Where grafted, it was a roughly 2 mm vessel. The vein was then br ought off the ascending aorta without difficulty. We then grafted the diagonal, which was a 1.5 mm vessel. It had decent flow and was brought off the ascending aorta with continuous running 5-0 Prol dhaval. I then brought the right internal mammary artery across the midline and grafted it to the dist al 3rd of the LAD, which was a 2.5 mm vessel. The mammary had brisk flow. It was tacked to the epi cardium. I then grafted the previously grafted vein graft to the PDA which, although patent, had so me moderately diffuse disease noted on inspection. For that reason, I felt it was a more important vessel, and I used vein graft to replace that. I then began rewarming while the mitral valve was ex posed. Through the right superior pulmonary vein, a retractor was placed. There was no significant chordal elongation, just annular dilatation on a relatively normal-appearing, slightly myxomatous-a ppearing valve. Regurgitation was central through multiple jets upon distending the ventricle. Sujatha uloplasty sutures were placed circumferentially. The patient was sized for a 32 ring which was sutu red in place without difficulty. There was no regurgitation of significance upon distending the saad tricle. Left atrium was closed. CO2 had been infused throughout the procedure. The crossclamp was removed with suction on the ascending aortic vent. It should be noted that vein was harvested endo scopically from the leg by RALF Thurston, who first assisted throughout the procedure. We then spent some time de-airing the patient through the apex and the ascending aortic vent. When no further ai r was identified, he was easily weaned from bypass. The heparin was reversed with protamine. The m itral valve revealed an insignificant wisp of insufficiency with good coaptation and good relatively preserved LV function with an ejection fraction of 35% to 40% as preoperatively. We attempted to c lose what thymic fat that remained from the 1st operation, although the pericardium had not been edelmira sed at that time. We were able to cover most of the grafts coming off the aorta and part of the lef t ventricle. Two mediastinal and 1 right pleural drains were placed. The thymic fat and pericardiu m were closed. The chest was closed in standard fashion. The patient was returned to ICU in stable condition. /[id number]/MODL
[2017-02-13 05:37] LABS: % IMMATURE GRANULYOCYTES 0.6 % (0.0-1.1); ABSOLUTE IMMATURE GRANULOCYTES 0.04 10^3/uL (0.00-0.10); ADD DIFF? NO; ADD MORPH? NO; ADD SCAN? NO; ATYPICAL LYMPHOCYTE FLAG 0 (0-99); FRAGMENT RBC FLAG 0 (0-99); HEMATOCRIT 21.8 % (40.0-51.0); HEMOGLOBIN 7.4 g/dL (13.7-17.5); LEFT SHIFT FLG 10 (0-99); LIPEMIA HEMOLYSIS FLAG 90 (0-99); MEAN CELL HEMOGLOBIN 34.7 pg (27.9-34.1); MEAN CELL HEMOGLOBIN CONCENTR. 33.9 g/dL (32.4-36.7); MEAN CELL VOLUME 102.3 fL (81.5-99.8); MEAN PLATELET VOLUME 10.4 fL (8.7-11.7); PLATELET CLUMPS FLAG 0 (0-99); PLATELET COUNT 69 10^3/uL (150-400); RED BLOOD CELL COUNT 2.13 10^6/uL (4.40-6.38); RED CELL DISTRIBUTION WIDTH 12.6 % (11.5-15.2)
[2017-02-13 05:51] LABS: ANION GAP 5 mEq/L (8-16); CALCIUM 6.4 mg/dL (8.5-10.4); CARBON DIOXIDE 21 mEq/l (22-31); CHLORIDE 119 mEq/L (97-110); CREATININE 0.6 mg/dL (0.7-1.3); GLOMERULAR FILTRATION RATE > 60; GLUCOSE 74 mg/dL (70-100); POTASSIUM 3.6 mEq/L (3.5-5.2); SODIUM 145 mEq/L (134-144)
[2017-02-13] MEDS: HEPARIN 5,000 UNIT/0.5 ML SYR SC SCH ×5 (06:12→22:03)
[2017-02-13 06:35] LABS: HEMATOCRIT 30.7 % (40.0-51.0); HEMOGLOBIN 10.4 g/dL (13.7-17.5); MEAN CELL HEMOGLOBIN 33.9 pg (27.9-34.1); MEAN CELL HEMOGLOBIN CONCENTR. 33.9 g/dL (32.4-36.7); RED BLOOD CELL COUNT 3.07 10^6/uL (4.40-6.38); RED CELL DISTRIBUTION WIDTH 12.6 % (11.5-15.2)
[2017-02-13 06:45] LABS: ANION GAP 10 mEq/L (8-16); CALCIUM 7.8 mg/dL (8.5-10.4); CARBON DIOXIDE 23 mEq/l (22-31); CHLORIDE 111 mEq/L (97-110); CREATININE 0.8 mg/dL (0.7-1.3); GLOMERULAR FILTRATION RATE > 60; GLUCOSE 123 mg/dL (70-100); POTASSIUM 4.3 mEq/L (3.5-5.2); SODIUM 144 mEq/L (134-144)
[2017-02-13] MEDS ORDERED: ALBUMIN 5% 250 ML IV ONE ×2 (08:00→09:00)
--- NOTE | 2017-02-13 08:01 | SOAPPROG ---
SOAP Progress Note Assessment/Plan: POD #1: Reoperation CABGx4 (BEVERLY-LAD, SVG-D1, SVG-circ, SVG-PDA), MV annuloplasty with #32 Physio ring, EVH RLE Severe 3VD with occluded ARNDT-LAD graft s/p reop CABGx4 - Wean Levophed as tolerated - BB when appropriate, ASA/statin for secondary prevention - FC out, AL to remain, CT to suction for air leak - Ambulation with PT - SCDs/heparin SQ for DVT porphylaxis Moderate MR s/p MVR MV annuloplasty with #32 Physio ring - Coumadin for INR goal 2-3 x 3 months Acute blood loss anemia - No transfusions needed, monitor ICM with EF 35% - BB/ACEi/diuretics when appropriate h/o cervical cord compression currently with no deficits pending spinal surgery - plan for OR once recovered from heart surgery 02/13/17 09:01 Subjective: No complaints. Denies CP/SOB. Objective: Vital Signs Temp Pulse Resp BP Pulse Ox 36.7 C 80 22 H 108/39 L 91 L 02/13/17 06:00 02/13/17 06:00 02/13/17 06:00 02/13/17 06:00 02/13/17 06:00 Laboratory Results 02/13/17 06:15 02/13/17 06:15 02/12/17 02/13/17 02/14/17 05:59 05:59 05:59 Intake Total 3120 Output Total 3375 Balance -255 Physical Exam - Physical Exam General Appearance: WD/WN, alert, no apparent distress EENT: normal ENT inspection Neck: normal inspection Respiratory: No respiratory distress Cardiac/Chest: regular rate, rhythm Abdomen: non-tender, soft, No distended Skin: normal color, warm/dry Extremities: No pedal edema Neuro/Psych: no motor/sensory deficits, alert, normal mood/affect, oriented x 3 ICD10 Worksheet Patient Problems: Problems Problem Status Onset Acute blood loss anemia Acute Mitral valve regurgitation Acute S/P CABG x 4 Acute ~02/12/17 S/P mitral valve repair Acute ~02/12/17 CAD (coronary artery disease) Acute CAD (coronary artery disease) of bypass graft Acute Hypertension Acute
[2017-02-13] MEDS ORDERED: ASPIRIN 81 MG CHEWABLE TAB TUBE PRN (09:00)
[2017-02-13] MEDS: PANTOPRAZOLE SODIUM 40 MG TAB PO SCH (09:57)
[2017-02-13] MEDS: ASPIRIN 81 MG CHEWABLE TAB PO SCH (09:58)
[2017-02-13] MEDS: CHLORHEXIDINE GLUCONATE 15 ML UDL PO SCH (09:58)
[2017-02-13] MEDS: FAMOTIDINE 20 MG/NACL 50 ML IV SCH ×2 (09:58→20:33)
[2017-02-13] MEDS: MUPIROCIN 2% 22 GM OINT NS SCH (09:59)
[2017-02-13] MEDS ORDERED: FUROSEMIDE 20 MG/2 ML VIAL ONE (14:30)
[2017-02-13] MEDS ORDERED: FUROSEMIDE 20 MG/2 ML VIAL IV ONE (15:00)
[2017-02-13 16:11] LABS: POTASSIUM 4.3 mEq/L (3.5-5.2)
[2017-02-13] MEDS ORDERED: FUROSEMIDE 20 MG/2 ML VIAL IVP ONE (20:46)
[2017-02-13] MEDS: IPRATROPIUM/ALBUTEROL 3 ML DEYVIAL IH PRN (21:20)
[2017-02-13] MEDS: guaiFENesin 600 MG TAB.ER PO SCH (22:03)
[2017-02-14] MEDS: METOPROLOL TARTRATE 25 MG TAB PO SCH ×3 (00:07→19:40)
[2017-02-14] MEDS: HYDROCODONE/APAP 5/325 TAB PO PRN ×4 (01:55→19:40)
[2017-02-14] MEDS: MUPIROCIN 2% 22 GM OINT NS SCH ×2 (01:56→09:09)
[2017-02-14] MEDS: IPRATROPIUM/ALBUTEROL 3 ML DEYVIAL IH PRN ×4 (02:30→21:45)
[2017-02-14] MEDS: HEPARIN 5,000 UNIT/0.5 ML SYR SC SCH ×2 (05:27→14:11)
[2017-02-14] MEDS: ceFAZolin 2 GM/DEXTROSE 100 ML IV SCH (05:27)
[2017-02-14 05:53] LABS: % IMMATURE GRANULYOCYTES 0.4 % (0.0-1.1); ABSOLUTE IMMATURE GRANULOCYTES 0.04 10^3/uL (0.00-0.10); ADD DIFF? NO; ADD MORPH? NO; ADD SCAN? NO; ATYPICAL LYMPHOCYTE FLAG 0 (0-99); FRAGMENT RBC FLAG 0 (0-99); LEFT SHIFT FLG 0 (0-99); LIPEMIA HEMOLYSIS FLAG 80 (0-99); MEAN CELL HEMOGLOBIN 33.8 pg (27.9-34.1); MEAN CELL HEMOGLOBIN CONCENTR. 33.3 g/dL (32.4-36.7); MEAN CELL VOLUME 101.5 fL (81.5-99.8); MEAN PLATELET VOLUME 10.4 fL (8.7-11.7); PLATELET CLUMPS FLAG 0 (0-99); PLATELET COUNT 103 10^3/uL (150-400); RED BLOOD CELL COUNT 2.66 10^6/uL (4.40-6.38)
[2017-02-14 06:13] LABS: ANION GAP 9 mEq/L (8-16); CALCIUM 8.8 mg/dL (8.5-10.4); CARBON DIOXIDE 27 mEq/l (22-31); CHLORIDE 107 mEq/L (97-110); GLOMERULAR FILTRATION RATE > 60; GLUCOSE 145 mg/dL (70-100); POTASSIUM 4.3 mEq/L (3.5-5.2); SODIUM 143 mEq/L (134-144)
--- NOTE | 2017-02-14 07:13 | SOAPPROG ---
SOAP Progress Note Assessment/Plan: POD #2: Reoperation CABGx4 (BEVERLY-LAD, SVG-D1, SVG-circ, SVG-PDA), MV annuloplasty with #32 Physio ring, EVH RLE Severe 3VD with occluded ARNDT-LAD graft s/p reop CABGx4 - BB/ASA/statin for secondary prevention - CTs to bulb suction - Ambulation with PT - SCDs/heparin SQ for DVT prophylaxis Moderate MR s/p MVR MV annuloplasty with #32 Physio ring - Coumadin for INR goal 2-3 x 3 months Acute blood loss anemia - No transfusions needed, monitor ICM with EF 35% - BB/ACEi/diuretics when appropriate h/o cervical cord compression currently with no deficits pending spinal surgery - Plan for OR in 6-8 weeks once recovered from heart surgery h/o smoking with cessation prior to surgery and likely COPD - Nebs, Mucomyst, aggressive pulmonary toilet - Nicotine patch declined Subjective: Breathing and pain is better this morning. Objective: Vital Signs Temp Pulse Resp BP Pulse Ox 36.6 C 94 18 121/51 H 92 02/14/17 05:50 02/14/17 05:50 02/14/17 05:50 02/14/17 05:50 02/14/17 05:50 Laboratory Results 02/14/17 05:30 02/14/17 05:30 02/13/17 02/14/17 02/15/17 05:59 05:59 05:59 Intake Total 3120 1477 Output Total 3375 1500 Balance -255 -23 Physical Exam - Physical Exam General Appearance: WD/WN, alert, no apparent distress EENT: normal ENT inspection Neck: normal inspection Respiratory: No respiratory distress Cardiac/Chest: regular rate, rhythm Abdomen: non-tender, soft, No distended Skin: normal color, warm/dry Extremities: pedal edema Neuro/Psych: no motor/sensory deficits, alert, normal mood/affect, oriented x 3 ICD10 Worksheet Patient Problems: Problems Problem Status Onset Acute blood loss anemia Acute Chronic Disease [facility]/Transitional Care Acute Mitral valve regurgitation Acute S/P CABG x 4 Acute ~02/12/17 S/P mitral valve repair Acute ~02/12/17 CAD (coronary artery disease) Acute CAD (coronary artery disease) of bypass graft Acute Hypertension Acute
[2017-02-14] MEDS ORDERED: fentaNYL 50 MCG PATCH TD SCH (08:30)
[2017-02-14] MEDS: ASPIRIN 81 MG CHEWABLE TAB PO SCH (08:57)
[2017-02-14] MEDS: PANTOPRAZOLE SODIUM 40 MG TAB PO SCH (08:57)
[2017-02-14] MEDS: SENNOSIDES/DOCUSATE SODIUM TAB PO SCH ×2 (08:57→19:39)
[2017-02-14] MEDS: FUROSEMIDE 20 MG TAB PO SCH ×2 (08:58→16:36)
[2017-02-14] MEDS: POTASSIUM CL 10 MEQ TAB PO SCH ×2 (08:58→19:40)
[2017-02-14] MEDS: guaiFENesin 600 MG TAB.ER PO SCH ×2 (08:59→19:39)
[2017-02-14] MEDS ORDERED: fentaNYL 25 MCG PATCH TD ONE (09:00)
[2017-02-14] MEDS ORDERED: POTASSIUM CL 20 MEQ TAB PO SCH (09:00)
[2017-02-14] MEDS ORDERED: WARFARIN SODIUM 5 MG TAB PO ONE (16:00)
[2017-02-15] MEDS: HYDROCODONE/APAP 5/325 TAB PO PRN ×3 (00:07→21:05)
[2017-02-15] MEDS: HEPARIN 5,000 UNIT/0.5 ML SYR SC SCH ×4 (00:08→21:06)
[2017-02-15 06:28] LABS: HEMATOCRIT 27.8 % (40.0-51.0); HEMOGLOBIN 9.3 g/dL (13.7-17.5); MEAN CELL HEMOGLOBIN 34.3 pg (27.9-34.1); MEAN CELL HEMOGLOBIN CONCENTR. 33.5 g/dL (32.4-36.7); MEAN CELL VOLUME 102.6 fL (81.5-99.8); RED BLOOD CELL COUNT 2.71 10^6/uL (4.40-6.38); RED CELL DISTRIBUTION WIDTH 13.1 % (11.5-15.2)
[2017-02-15 06:34] LABS: ANION GAP 9 mEq/L (8-16); CALCIUM 9.2 mg/dL (8.5-10.4); CARBON DIOXIDE 26 mEq/l (22-31); CHLORIDE 104 mEq/L (97-110); CREATININE 1.4 mg/dL (0.7-1.3); GLOMERULAR FILTRATION RATE 50; GLUCOSE 139 mg/dL (70-100); POTASSIUM 4.8 mEq/L (3.5-5.2); SODIUM 139 mEq/L (134-144)
[2017-02-15 07:00] LABS: INR 1.15 (0.83-1.16); PROTIME(PATIENT) 14.7 SEC (12.0-15.0)
[2017-02-15] MEDS ORDERED: FUROSEMIDE 20 MG/2 ML VIAL IVP ONE ×2 (08:35→20:54)
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
[2017-02-15] MEDS: guaiFENesin 600 MG TAB.ER PO SCH ×2 (08:48→21:03)
[2017-02-15] MEDS: SENNOSIDES/DOCUSATE SODIUM TAB PO SCH ×2 (08:49→21:03)
[2017-02-15] MEDS: METOPROLOL TARTRATE 25 MG TAB PO SCH ×2 (08:49→21:04)
[2017-02-15] MEDS: ASPIRIN 81 MG CHEWABLE TAB PO SCH (08:49)
[2017-02-15] MEDS: PANTOPRAZOLE SODIUM 40 MG TAB PO SCH (08:50)
[2017-02-15] MEDS: IPRATROPIUM/ALBUTEROL 3 ML DEYVIAL IH SCH ×4 (10:31→22:35)
[2017-02-15] MEDS ORDERED: METOPROLOL TARTRATE 25 MG TAB PO ONE (13:30)
[2017-02-15] MEDS: traMADol 50 MG TAB PO PRN (15:54)
[2017-02-15] MEDS ORDERED: WARFARIN SODIUM 5 MG TAB PO ONE (16:00)
[2017-02-16] MEDS: traMADol 50 MG TAB PO PRN (05:00)
[2017-02-16] MEDS: HEPARIN 5,000 UNIT/0.5 ML SYR SC SCH (05:01)
[2017-02-16 05:26] LABS: ANION GAP 10 mEq/L (8-16); CALCIUM 9.2 mg/dL (8.5-10.4); CARBON DIOXIDE 25 mEq/l (22-31); CHLORIDE 104 mEq/L (97-110); CREATININE 1.5 mg/dL (0.7-1.3); GLOMERULAR FILTRATION RATE 46; GLUCOSE 136 mg/dL (70-100); POTASSIUM 5.1 mEq/L (3.5-5.2); SODIUM 139 mEq/L (134-144)
[2017-02-16] MEDS: IPRATROPIUM/ALBUTEROL 3 ML DEYVIAL IH SCH ×3 (05:34→17:36)
[2017-02-16 05:35] LABS: INR 2.45 (0.83-1.16); PROTIME(PATIENT) 26.8 SEC (12.0-15.0)
--- NOTE | 2017-02-16 07:09 | SOAPPROG ---
SOAP Progress Note Assessment/Plan: POD #4: Reoperation CABGx4 (BEVERLY-LAD, SVG-D1, SVG-circ, SVG-PDA), MV annuloplasty with #32 Physio ring, EVH RLE Severe 3VD with occluded ARNDT-LAD graft s/p reop CABGx4 - BB/ASA/statin for secondary prevention - CTs dc'd - Ambulation with PT - SCDs/heparin SQ for DVT prophylaxis Moderate MR s/p MVR MV annuloplasty with #32 Physio ring - Coumadin for thromboprophylaxis, INR goal 2-3 x 3 months Acute blood loss anemia - No transfusions needed, stable ICM with EF 35%, fluid overload - Continue BB/Lasix - ACEi when appropriate h/o cervical cord compression currently with no deficits pending spinal surgery - Plan for OR in 6-8 weeks once recovered from heart surgery h/o smoking up to surgery and likely COPD - Nebs, Mucomyst, aggressive pulmonary toilet - Nicotine patch declined Dispo - Home Sunday without services Subjective: Breathing is better. Denies CP. Objective: Vital Signs Temp Pulse Resp BP Pulse Ox 36.7 C 79 19 109/44 L 92 02/16/17 05:52 02/16/17 05:52 02/16/17 05:52 02/16/17 05:52 02/16/17 05:52 Laboratory Results 02/15/17 05:20 02/16/17 05:00 02/15/17 02/16/17 02/17/17 05:59 05:59 05:59 Intake Total 1580 990 Output Total 1405 766 Balance 175 224 PT 26.8 SEC (12.0-15.0) H D 02/16/17 05:00 INR 2.45 (0.83-1.16) H 02/16/17 05:00 Physical Exam - Physical Exam General Appearance: WD/WN, alert, no apparent distress EENT: normal ENT inspection Neck: normal inspection Respiratory: No respiratory distress Cardiac/Chest: regular rate, rhythm Abdomen: non-tender, soft, No distended Skin: normal color, warm/dry Extremities: pedal edema Neuro/Psych: no motor/sensory deficits, alert, normal mood/affect, oriented x 3 ICD10 Worksheet Patient Problems: Problems Problem Status Onset Acute blood loss anemia Acute Chronic Disease Mgmt/Transitional Care Acute Mitral valve regurgitation Acute S/P CABG x 4 Acute ~02/12/17 S/P mitral valve repair Acute ~02/12/17 CAD (coronary artery disease) Acute CAD (coronary artery disease) of bypass graft Acute Hypertension Acute
[2017-02-16] MEDS ORDERED: FUROSEMIDE 40 MG/4 ML VIAL IVP ONE (07:39)
[2017-02-16] MEDS: guaiFENesin 600 MG TAB.ER PO SCH ×2 (08:21→22:16)
[2017-02-16] MEDS: POTASSIUM CL 20 MEQ TAB PO SCH ×2 (08:21→22:16)
[2017-02-16] MEDS: METOPROLOL TARTRATE 25 MG TAB PO SCH ×2 (08:22→22:17)
[2017-02-16] MEDS: ASPIRIN 81 MG CHEWABLE TAB PO SCH (08:22)
[2017-02-16] MEDS: SENNOSIDES/DOCUSATE SODIUM TAB PO SCH ×2 (08:23→22:16)
[2017-02-16] MEDS: FUROSEMIDE 40 MG TAB PO SCH ×2 (08:24→15:04)
[2017-02-16] MEDS: PANTOPRAZOLE SODIUM 40 MG TAB PO SCH (08:24)
[2017-02-16] MEDS ORDERED: WARFARIN SODIUM 2 MG TAB PO ONE (16:00)
[2017-02-16] MEDS ORDERED: WARFARIN SODIUM 2.5 MG TAB PO ONE (16:00)
--- NOTE | 2017-02-16 17:50 | ECHO ---
[id number] + + [address] : : [place] [address] : : [phone] + + Adult Echocardiographic Report + -----+ :Name: JAYASHREE CULVER [place] Date: 02/16/2017 10:12 AM : : Hospital Admission Number: [id number] Location : 217: :: 1945 Gender: Male Height: 69 in : :Age: 71 yrs Race: WH Weight: 171 lb : :Reason For Study: Eval LV Fx : : BSA: 1.9 meters2 : :History: Post Op CABG, #32 Zazueta physio ring : + -----+ MMode/2D Measurements \T\ Calculations IVSd: 0.98 cm LVIDd: 5.3 cm FS: 17.3 % MV Diam: 3.5 cm LVPWd: 1.2 cm LVIDs: 4.4 cm EDV(Teich): 136.7 ml ESV(Teich): 87.8 ml EF(Teich): 35.7 % Ao root diam: LVOT diam: 2.1 cmLVLd ap4: 8.4 cm SV(MOD-sp4): 3.2 cm LVOT area: EDV(MOD-sp4): 57.0 ml ACS: 1.7 cm 3.5 cm2 105.0 ml LVLs ap4: 7.3 cm ESV(MOD-sp4): 48.0 ml EF(MOD-sp4): 54.3 % Normal Measurement Values: + + :LVIDd (3.5-5.7cm) IVSd (0.6-1.1cm) LVPWd (0.6-1.1cm) Aortic Root (2.0-3.7cm)Left Atrium (1.5-4.0cm): :LV Vol(d) (76-115ml) LV Vol(s) (29-48ml) Ejec Fraction (50-65%)PV Franklin (0.6- 1.2m/s) TV Franklin (0.4-1.0m/s) : :MV E Franklin (0.8-1.0m/s)MV A Franklin (0.3-1.0m/s)LVOT Franklin (0.7-1.2m/s) Asc Ao Franklin ( 0.9-1.8m/s) : + + Doppler Measurements \T\ Calculations MV E max franklin: MV V2 mean: MV P1/2t max franklin: Ao V2 max: 151.4 cm/sec 86.3 cm/sec 161.5 cm/sec 116.7 cm/sec MV A max franklin: MV mean PG: MV P1/2t: 52.4 msec Ao max P.9 cm/sec 3.5 mmHg MVA(P1/2t): 4.2 cm2 5.5 mmHg MV E/A: 1.4 MV V2 VTI: 34.6 cmMV dec slope: EILEEN(V,D): 2.8 cm2 MV dec time: MV area (1 diam): 0.23 sec 9.6 cm2 902.1 cm/sec2 MVA(VTI): 1.3 cm2 MV Flow area (1diam): 9.6 cm2 LV V1 max: SV(MV 1 diam): PA V2 max: RF(MV,LVOT) 94.3 cm/sec 333.4 ml 92.3 cm/sec (1diam): 0.86 LV V1 max PG: SI(MV 1 diam): PA max P.4 mmHg 3.6 mmHg 172.5 ml/m2 LV V1 mean PG: SV(LVOT): 46.4 ml 1.3 mmHg LV V1 mean: 50.7 cm/sec LV V1 VTI: 13.4 cm Left Ventricle The left ventricle is normal in size. There is normal left ventricular wall thickness. There is basilar to mid inferolateral hypokinesis. The 2D ejection fraction is underestimated due to focal wall motion abnormalities. The ejection fraction with apical 4C and 2C views is estimated at 50-55%. The left ventricular ejection fraction is calculated at 35.7 %. Right Ventricle The right ventricle is normal in size and function. Atria The left atrial size is normal. Right atrial size is normal. Mitral Valve There is trace mitral regurgitation. An annuloplasty ring is noted in the mitral position. Prosthetic mitral valve peak and/or mean gradients are normal. Tricuspid Valve Normal tricuspid valve. Aortic Valve The aortic valve is normal in structure and function. The aortic valve is trileaflet. There is no aortic stenosis. There is no aortic insufficiency. Pulmonic Valve The pulmonic valve is not well visualized. There is no pulmonic valvular regurgitation. Great Vessels The aortic root is normal size. Pericardium/Pleural There is no pericardial effusion. Conclusion A complete two-dimensional transthoracic echocardiogram was performed (2D, M-mode, Doppler and color flow Doppler). (1) Left ventricular systolic ejection fraction was moderately reduced (40- 45%) - there was basilar and inferolateral hypokinesis noted (2) No left ventricular hypertrophy (3) Diastolic function was not clearly assessed in this study (4) Grossly normal right ventricular size and function (5) Normal atrial dimensions (6) Physiologic mitral regurgitation through annuloplasty ring (7) Trileaflet aortic valve without sclerosis, stenosis, or insufficiency (8) Grossly normal tricuspid valve (9) Poor visualization of the pulmonic valve (10) No comparison echocardiograms Final Reading Physician: Aurelio Arceo signed on 02/16/2017 05:48 PM Ordering Physician: Joi Garrison Performed By: Cole Vázquez RDCS
[2017-02-16 17:59] LABS: POTASSIUM 4.4 mEq/L (3.5-5.2)
[2017-02-16] MEDS: HYDROCODONE/APAP 5/325 TAB PO PRN (22:15)
[2017-02-16] MEDS ORDERED: FUROSEMIDE 100 MG/10 ML VIAL IVP ONE (23:38)
[2017-02-17] MEDS: IPRATROPIUM/ALBUTEROL 4GM MDI IH SCH ×2 (05:35→11:09)
[2017-02-17 05:53] LABS: HEMATOCRIT 27.3 % (40.0-51.0)
[2017-02-17 06:03] LABS: INR 2.49 (0.83-1.16); PROTIME(PATIENT) 27.2 SEC (12.0-15.0)
[2017-02-17 06:07] LABS: ALANINE AMINOTRANSFERASE 135 IU/L (21-72); ALBUMIN 3.8 g/dL (3.5-5.0); ALKALINE PHOSPHATASE 65 IU/L (38-126); ANION GAP 12 mEq/L (8-16); ASPARTATE AMINOTRANSFERASE 168 IU/L (17-59); BILIRUBIN,TOTAL 0.9 mg/dL (0.1-1.4); CALCIUM 9.1 mg/dL (8.5-10.4); CARBON DIOXIDE 28 mEq/l (22-31); CHLORIDE 101 mEq/L (97-110); CREATININE 1.4 mg/dL (0.7-1.3); GLOMERULAR FILTRATION RATE 50; GLUCOSE 120 mg/dL (70-100); POTASSIUM 4.6 mEq/L (3.5-5.2); SODIUM 141 mEq/L (134-144); TOTAL PROTEIN 6.2 g/dL (6.3-8.2)
[2017-02-17] MEDS ORDERED: POTASSIUM CL 10 MEQ TAB PO SCH (09:00)
[2017-02-17] MEDS ORDERED: TORSEMIDE 20 MG TAB PO SCH (10:00)
[2017-02-17] MEDS: METOPROLOL TARTRATE 25 MG TAB PO SCH (10:04)
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
[2017-02-17] MEDS: PANTOPRAZOLE SODIUM 40 MG TAB PO SCH (10:05)
[2017-02-17] MEDS: guaiFENesin 600 MG TAB.ER PO SCH (10:06)
[2017-02-17] MEDS: ASPIRIN 81 MG CHEWABLE TAB PO SCH (10:06)
[2017-02-17] MEDS: SENNOSIDES/DOCUSATE SODIUM TAB PO SCH (10:07)
[2017-02-17 11:16] VITALS: BP 119/64; PULSE 77; RESP 15; TEMP 97.6; O2SAT 93
--- NOTE | 2017-02-17 13:46 | PDDCSUM ---
Discharge Summary Discharge Summary: DATE OF ADMISSION: 02/12/17 DATE OF DISCHARGE: 02/17/17 DISPOSITION: Home, self-care PRINCIPAL ADMISSION DIAGNOSES: 1. Progressive CAD with severe left main stenosis and occluded ARNDT-LAD graft. 2. Ischemic cardiomyopathy PRINCIPAL DISCHARGE DIAGNOSES: 1. Moderate mitral valve insufficiency identified intraop. 2. Status post redo coronary artery bypass grafting x 4. 3. Status post mitral valve annuloplasty. 4. Status post prophylactic AtriClip ligation of the left atrial appendage. 5. Suspected COPD. 6. Acute on chronic systolic and diastolic congestive heart failure. 7. Acute expected blood loss anemia HISTORY OF PRESENT ILLNESS: 71 yo male smoker with a hx of remote CABG discovered upon cardiology clearance for cervical spine surgery to have severe progressive CAD of the left main, LAD , and LCX, with an occluded ARNDT-LAD graft, and a globally hypokinetic LV with impaired systolic fx (EF35%). No chest pain, dyspnea, overt CHF, palpitations, or perceivable functional limitations. Admitted for elective redo CABG. PERTINENT PAST MEDICAL HISTORY: 1. CAD - s/p lat wall TN and CABG3 (ARNDT-LAD, SV-D2, SV-PDA) 2007. Vein harvested from left leg. Maintained on DAPT. 2. Carotid artery disease - mild to moderate calcific plaquing bilaterally by preop carotid US; no hemodynamically significant internal carotid stenosis; 50- 70% RECA stenosis. 3. Cervical spinal stenosis secondary to degenerative retrolisthesis, osteophytes and diskitis - traumatic exacerbation with temporary quadriplegia s/ p mechanical fall with head contusion walking his dog in December 2016 4. HTN 5. Hearing loss 6. Tobacco abuse - up to 2 ppd between ages [age], switching to cigars 1-3 daily in his late 40s. Willing to quit. 7. Gout MEDICATIONS ON ADMISSION: ASA 81 mg daily, Plavix 75 mg daily, Metoprolol tartrate 12.5 mg BID, herbal supplement daily. ALLERGIES/SENSITIVITIES: NKDA PROCEDURES/IMAGIN/17 (Kasi): Redo median sternotomy. Lysis of adhesions. Redo coronary artery bypass grafting x4 (BEVERLY-LAD, SV-D1, SV-PLC, SV-PDA). Preservation old SV-D2. Takedown BEVERLY. Endoscopic vein harvest RLE. Mitral valve annuloplasty with a 32mm Zazueta Physio ring. Prophylactic AtriClip ligation of the left atrial appendage. 02/16 (Cheng): Transthoracic echocardiogram ABBREVIATED HOSPITAL COURSE BY ACTIVE PROBLEM LIST: 1. Progressive asymptomatic CAD, 9 yrs s/p CABG3 - Occluded ARNDT-LAD graft and heavily diseased PDA graft replaced. Lightly diseased D2 graft preserved. New grafts to D1 and LAD created. Secondary prevention with baby ASA, statin, and BB as tolerated. 2. ICM with EF 35% - And evidence mild congestive hepatopathy. Low grade chronic CHF suspected. Postop hemodynamics transiently supported with pressors. Moderate volume overload diuresed as allowed by renal fx (Cr bump to 1.4). Resistance to oral lasix noted. Echo on POD#4 remarkable for improved LV systolic fx > 40%. Initiation of ACEI planned at outpt followup if sufficient BP and normalized renal fx. 3. Moderate MR - Functional insufficiency identified by intraop CELESTE. Amenable to ring annuloplasty. Antithrombotic prophylaxis with Coumadin. Target INR 2-3. Duration at least 6 weeks, pending timing of spine surgery. 4. Acute expected blood loss anemia with thrombocytopenia - Stable. No transfusions needed. Appropriate platelet rebound. VTE prophylaxis with coumadin. 5. Suspected COPD - [facility] smoker, quitting prior to surgery. Extubated without incident. Abundant secretions mobilized on mucolytics. Stable suppl O2 req. Supportive care with Nebs and aggressive RT. Nicotine patch declined. Outpt f/u with pulmonary arranged. 6. Hx cervical cord compression - Awaiting surgery. No apparent postop exacerbation. Outpt f/u with neurosurg to plan timing of spine surgery. DISCHARGE CLINICAL INFORMATION: Sternum grossly stable. Sternotomy and RLE CDI, sutured, +Dermabond. HR 70s-80s. SBP 110s-120s. SpO2 78% RA and 93% on 2 Lpm O2. Wt 1.2kg above admission at 74.8kilos. Hgb 9, HCT 27.3, Plt 125, Na 141, K 4.6, BUN 44, Cr 1.4, AST 168, ALT 135 CXR: mild pulmonary vascular congestion, small-moderate rt pleural effusion Coumadin flow sheet: Indication prosthetic MV ring, target INR 2-3, duration 6- 12 weeks Date INR mg 02/14 n/d 5 02/15 1.15 5 02/16 2.45 0 02/17 2.49 0 DISCHARGE MEDICATIONS: As on admission with the following adjustments: Hold Plavix NEW prescriptions: 1. [place] 5/325, 1/2 tab to 2 tabs q 6h prn incisional discomfort. 2. Combivent MDI one inhalation qid. 3. Mucinex 600 mg BID. 4. Torsemide 20 mg daily. 5. KlorCon 10 mEq daily with Torsemide. 6. Coumadin 2.5 mg alternating with 1.25 mg every other day, or as directed by INR/anticoagulation clinic. Next dose 2.5 mg on 12/21. 7. Oxygen @2 Lpm continuously, or as directed by SpO2. FOLLOW UP APPOINTMENTS: 1. CV surgery: with Dr Villaseñor at [facility] on 02/22 at 10:30am. 2. Cardiology: with Dr Silva (or Dr Perez) at [facility] within 4-6 weeks. Appointment to be established during surgical visit. 3. Pulmonology: with Dr De La Cruz at [facility] Pulmonology in 4-6 weeks for assessment COPD. 4. [facility] Anticoagulation clinic on 02/21 at 10am. FOLLOW UP TESTING: CXR prior to surgical appointment.
[2017-02-17] MEDS ORDERED: ASPIRIN 81 MG CHEWABLE TAB PO SCH (18:00)
[2017-02-17] MEDS ORDERED: METOPROLOL TARTRATE 25 MG TAB PO SCH (21:00)
[2017-02-18] MEDS ORDERED: PRESERVISION AREDS2 FORMULA EYE VIT 1 EACH PO SCH (09:00)
== END 2017-02-17 15:25 | disposition home or self-care (01) | DRG 219 ==
LOC: F3N 02-12 09:20 → F2N 02-12 15:00 → F2W 02-13 18:32
PROVIDERS: ADMIT Thoracic Surgery (Cardiothoracic Vascular Surgery); ATTEND Thoracic Surgery (Cardiothoracic Vascular Surgery)
PROC: 06BQ4ZZ Excision of Left Saphenous Vein, Percutaneous Endoscopic Approach (ICD-10-PCS; principal; 2017-02-12 10:45)
PROC: 021209W Bypass Coronary Artery, Three Arteries from Aorta with Autologous Venous Tissue, Open Approach (ICD-10-PCS; principal; 2017-02-12 10:45)
PROC: 5A1221Z Performance of Cardiac Output, Continuous (ICD-10-PCS; principal; 2017-02-12 10:45)
PROC: 02100Z9 Bypass Coronary Artery, One Artery from Left Internal Mammary, Open Approach (ICD-10-PCS; principal; 2017-02-12 10:45)
PROC: 02UG0JZ Supplement Mitral Valve with Synthetic Substitute, Open Approach (ICD-10-PCS; principal; 2017-02-12 10:45)
DX: I34.0 Nonrheumatic mitral (valve) insufficiency (principal); I50.43 Acute on chronic combined systolic (congestive) and diastolic (congestive) heart failure; I25.810 Atherosclerosis of coronary artery bypass graft(s) without angina pectoris; D62 Acute posthemorrhagic anemia; I11.0 Hypertensive heart disease with heart failure; E78.5 Hyperlipidemia, unspecified; I25.5 Ischemic cardiomyopathy; Z72.0 Tobacco use; J44.9 Chronic obstructive pulmonary disease, unspecified; H91.90 Unspecified hearing loss, unspecified ear; M43.12 Spondylolisthesis, cervical region; I25.2 Old myocardial infarction
CPT/HCPCS: 82947-QW; 97116-GP; 97161-GP; 97165-GO; 97530-GP; 97535-GO; G8978-GP-CJ; G8979-GP-CI; G8980-GP-CI; G8987-GO-CK; G8988-GO-CI; J0153; J0282; J0690; J1170; J1250; J1265; J1644; J1815; J2001; J2150; J2250; J2260; J2370; J2405; J2440; J2704; J2720; J2765; J2930; J3010; J7060; P9041

== ENCOUNTER → 2017-02-09 | Outpatient (CLI) | payer OTHER, MEDICARE | LOC: BHFA 15:30 | PROVIDERS: ATTEND Internal Medicine Interventional Cardiology | DX: Z01.818 Encounter for other preprocedural examination (principal) ==

== ENCOUNTER → 2017-02-09 | Outpatient (CLI) | payer OTHER, MEDICARE | LOC: FIMAGING 14:39 | PROVIDERS: ATTEND Thoracic Surgery (Cardiothoracic Vascular Surgery) | DX: Z01.818 Encounter for other preprocedural examination (principal) ==

== ENCOUNTER → 2017-02-21 | Outpatient (CLI) | payer OTHER, MEDICARE | LOC: FIMAGING 10:35 | PROVIDERS: ATTEND Physician Assistant Surgical | DX: Z09 Encounter for follow-up examination after completed treatment for conditions other than malignant neoplasm (principal); J90 Pleural effusion, not elsewhere classified; J98.11 Atelectasis; Z95.1 Presence of aortocoronary bypass graft; Z95.4 Presence of other heart-valve replacement ==

== ENCOUNTER → 2017-02-26 | Outpatient (CLI) | payer OTHER, MEDICARE | LOC: FIMAGING 11:36 | PROVIDERS: ATTEND Thoracic Surgery (Cardiothoracic Vascular Surgery) | DX: Z48.89 Encounter for other specified surgical aftercare (principal); I25.10 Atherosclerotic heart disease of native coronary artery without angina pectoris; I34.0 Nonrheumatic mitral (valve) insufficiency; Z09 Encounter for follow-up examination after completed treatment for conditions other than malignant neoplasm ==

== ENCOUNTER → 2017-05-24 | Outpatient (CLI) | payer OTHER, MEDICARE | LOC: BHFA 11:00 | PROVIDERS: ATTEND Internal Medicine Critical Care Medicine | DX: J44.9 Chronic obstructive pulmonary disease, unspecified (principal) ==

== ENCOUNTER → 2017-05-24 | Outpatient (CLI) | payer OTHER, MEDICARE | LOC: BHLMT 09:15 | PROVIDERS: ATTEND Internal Medicine Cardiovascular Disease | DX: I34.0 Nonrheumatic mitral (valve) insufficiency (principal); I25.10 Atherosclerotic heart disease of native coronary artery without angina pectoris; I34.9 Nonrheumatic mitral valve disorder, unspecified | CPT/HCPCS: 93306-PO ==

== ENCOUNTER 2017-06-20 07:30 | Inpatient (IN) | payer OTHER, MEDICARE ==
[2017-06-25] MEDS ORDERED: BUPIVACAINE 0.25% 30 ML SDV ONE ×2 (12:44→14:19)
[2017-06-25] MEDS ORDERED: CHLORHEXIDINE GLUC HIBICLENS 118 ML BTL TP ONE (12:44)
[2017-06-25] MEDS ORDERED: THROMBIN (BOVINE) 20,000 UNIT VIAL TP ONE (12:44)
[2017-06-25] MEDS ORDERED: BACITRACIN 50,000 UNITS/10 ML SYR IRR ONE (12:45)
[2017-06-25] MEDS ORDERED: LIDOCAINE 1% 2 ML INJ ONE (12:49)
[2017-06-25] MEDS ORDERED: ceFAZolin 2 GM/DEXTROSE 100 ML IV ONE (12:51)
[2017-06-25] MEDS ORDERED: LIDOCAINE 1% 2 ML INJ ID PRN (12:52)
[2017-06-25] MEDS ORDERED: LR 1,000 ML IV ONE (12:52)
--- NOTE | 2017-06-25 13:36 | PDANEPAE ---
ANE History of Present Illness Right arm pain with cervical stenosis ANE Past Medical History - Cardiovascular History Hx Hypertension: Yes Hx Arrhythmias: No Hx Chest Pain: No Hx Coronary Artery / Peripheral Vascular Disease: Yes Hx CHF / Valvular Disease: No Hx Palpitations: No Cardiovascular History Comment: S/P CABG JANUARY 2017. [place] 2004 - Pulmonary History Hx COPD: No Hx Asthma/Reactive Airway Disease: No Hx Recent Upper Respiratory Infection: No Hx Oxygen in Use at Home: No Hx Sleep Apnea: Yes Sleep Apnea Screening Result - Last Documented: Positive - Neurologic History Hx Cerebrovascular Accident: No Hx Seizures: No Hx Dementia: No - Endocrine History Hx Diabetes: No - Renal History Hx Renal Disorders: No - Liver History Hx Hepatic Disorders: No - Neurological & Psychiatric Hx Hx Neurological and Psychiatric Disorders: No - Cancer History Hx Cancer: No - Congenital Disorder History Hx Congenital Disorders: No - GI History Hx Gastrointestinal Disorders: No - Other Health History Other Health History: RAVINDER CATARACT. CERVICAL STENOSIS NECK INJURY 12/27/2016. GOUT - Chronic Pain History Chronic Pain: No - Surgical History Prior Surgeries: CABG X3 2007. STENT 2004. RT KNEE SCOPE. ORIF LT THUMB WITH POST HARDWARE REMVL. RT SHLDR. USED SCREW CHRONIC. RT NASAL BLEED HAD TO BE CLAMPED 1990. APPY. TONSILLECTOMY ANE Review of Systems - Exercise capacity METS (RN): 4 METS ANE Patient History - Allergies Allergies/Adverse Reactions: No Known Allergies Allergy (Verified 01/10/17 15:01) - Home Medications Home Medications: Aspirin [Aspirin 81mg (*)] 81 mg PO DAILY@18 12/28/16 [Last Taken 1 Week Ago] Metoprolol Tartrate [Lopressor 25 mg (*)] 25 mg PO BID 12/28/16 [Last Taken 08:00] C/E/Zn/Cu/OM3/DHA/EPA/LUT/ZEAX [Preservision Areds 2 Softgel] 1 each PO DAILY [Last Taken 3 Months Ago] Amiodarone HCl [Pacerone (*)] 200 mg PO DAILY 05/09/17 [Last Taken 1 Month Ago] Warfarin Sodium [Coumadin 2.5MG (*)] 2.5 mg PO DAILY16 05/09/17 [Last Taken 1 Month Ago] - NPO status NPO Since - Liquids (Date): 06/25/17 NPO Since - Liquids (Time): 02:00 NPO Since - Solids (Date): 06/24/17 NPO Since - Solids (Time): 22:00 - Smoking Hx Smoking Status: Former smoker - Family Anes Hx Family Hx Anesthesia Complications: NEG ANE Labs/Vital Signs - Vital Signs Blood Pressure: 137/70 Heart Rate: 71 Respiratory Rate: 15 O2 Sat (%): 93 Height: 175.26 cm Weight: 72.575 kg ANE Physical Exam - Airway Neck exam: decreased ROM Mallampati Score: Class 2 Mouth exam: normal dental/mouth exam - Pulmonary Pulmonary: no respiratory distress - Cardiovascular Cardiovascular: regular rate and rhythym ANE Anesthesia Plan Anesthesia Plan: general endotracheal anesthesia (Plan Glidescope intubation)
--- NOTE | 2017-06-25 13:36 | PDHPUP ---
History & Physical Update H&P update statement: This history and physical update is based on an assessment of the patient which was completed after admission or registration (within 24 hours), but prior to the surgery/procedure. H&P update: H&P reviewed & patient examined, no change in patient's condition since H&P completed
[2017-06-25 13:38] LABS: INR 0.98 (0.83-1.16); PROTIME(PATIENT) 12.9 SEC (12.0-15.0)
[2017-06-25] MEDS ORDERED: fentaNYL 100 MCG/2 ML INJ ONE ×3 (13:46→18:57)
[2017-06-25] MEDS ORDERED: REMIFENTANIL HCL 1 MG VIAL ONE (13:46)
[2017-06-25] MEDS ORDERED: PROPOFOL/EMULSION 500 MG/50 ML BOTTLE IV ONE (13:46)
[2017-06-25] MEDS ORDERED: PROPOFOL 200 MG/20 ML VIAL ONE (13:46)
[2017-06-25] MEDS ORDERED: ROCURONIUM 50 MG/5 ML VIAL ONE (13:47)
[2017-06-25] MEDS ORDERED: LIDOCAINE 2% 5 ML SDV ONE (13:47)
[2017-06-25] MEDS ORDERED: GLYCOPYRROLATE 0.2 MG/1 ML VIAL ONE (13:48)
[2017-06-25] MEDS ORDERED: BISACODYL 10 MG SUPP PR PRN (14:23)
[2017-06-25] MEDS ORDERED: POLYETHYLENE GLYCOL 3350 17 GM PKT PO PRN (14:23)
[2017-06-25] MEDS ORDERED: diphenhydrAMINE 25 MG CAP PO PRN (14:23)
[2017-06-25] MEDS ORDERED: MAGNESIUM HYDROXIDE 30 ML UDCUP PO PRN (14:23)
[2017-06-25] MEDS ORDERED: LACTULOSE 20 GM/30 ML UDCUP PO PRN (14:23)
[2017-06-25] MEDS ORDERED: ONDANSETRON 4 MG/2 ML VIAL IVP PRN ×2 (14:23→16:52)
[2017-06-25] MEDS ORDERED: ONDANSETRON DISINTEGRATING 4 MG TAB PO PRN (14:23)
[2017-06-25] MEDS ORDERED: DEXAMETHASONE 4 MG/ML VIAL ONE (14:38)
[2017-06-25] MEDS ORDERED: NALOXONE HCL 0.4 MG/ML INJ IVP PRN (16:52)
[2017-06-25] MEDS ORDERED: PROMETHAZINE HCL 25 MG/ML INJ IVP PRN (16:52)
[2017-06-25] MEDS ORDERED: PHENYLEPHRINE HCL 100 MCG/ML SYR ONE (17:15)
--- NOTE | 2017-06-25 17:34 | POSTOPPROG ---
Post Op Note Date of Operation: 06/25/17 Surgeon: Dennis Herrera Locomotive Crane Operator: Katia Mar NP Anesthesia: GET(General Endotracheal) Pre-op Diagnosis: Cervical stenosis Procedure: ACDF C3-4, C4-5, C5-6 Inf/Abcess present in the surg proc area at time of surgery?: No Depth: Deep Incisional (Fascial) EBL: 50-100 Total fluids administered: see anesthesia Complications: none Date of Surgery: 06/25/17 Post Op Day: 0 Assessment/Plan: Assessment: 71 yr old s/p ACDF C3-4, C4-5, C5-6 for bilateral arm symptoms right greater than left Plan: -Optimize pain management -PT/OT/ST -Patient has cervical collar -Post op xrays in am -Please call neurosurgery with questions/concerns Subjective: Patient waking up in PACU Objective: PERRLA EOMI 5/5 BUE 5/5 BLE sensation intact to light touch BLE Dressing CDI Appropriate Neuro Check Frequency Ordered: Yes
[2017-06-25] MEDS ORDERED: HYDROmorphONE/DILAUDID 1 MG/ML SYR ONE (18:57)
[2017-06-25] MEDS ORDERED: DIAZEPAM 10 MG/2 ML SYR ONE ×2 (18:57→20:14)
--- NOTE | 2017-06-25 18:57 | POSTANESTH ---
Post Anesthetic Evaluation Cardiovascular Status: Normal, Stable, Tx Hyper/Hypo-tension Respiratory Status: Normal, Stable Level of Consciousness/Mental Status: Can Participate in Eval Pain Control: Adequate, Prn Tx Ordered (Some post neck spasms) Nausea/Vomiting Control: Adequate, Prn Tx Ordered Complications Possibly Related to Anesthesia: None Noted
[2017-06-25] MEDS: fentaNYL 100 MCG/2 ML INJ IVP PRN ×2 (19:00→19:15)
[2017-06-25] MEDS ORDERED: DIAZEPAM 10 MG/2 ML SYR IVP PRN (19:00)
[2017-06-25] MEDS: HYDROmorphONE/DILAUDID 1 MG/ML SYR IVP PRN ×3 (19:01→19:30)
[2017-06-25] MEDS ORDERED: LABETALOL HCL 5 MG/ML 20 ML MDV ONE (19:32)
[2017-06-25] MEDS ORDERED: oxyCODONE IR 5 MG TAB ONE (19:37)
[2017-06-25] MEDS: oxyCODONE IR 5 MG TAB PO PRN ×2 (19:38→23:19)
[2017-06-25] MEDS ORDERED: DIAZEPAM 10 MG/2 ML SYR IVP ONE (20:20)
--- NOTE | 2017-06-25 20:40 | GOP ---
[f rep st] OPERATIVE REPORT DATE OF OPERATION: 06/25/2017 SURGEON: Chela Herrera MD NEUROSURGEON: Chela Herrera MD. MATERIALS ENGINEERING TECHNICIAN: Katia Mar NP. 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 PROCEDURE PERFORMED: Anterior cervical diskectomy; decompression of the spinal canal and arthrodesi s and neural foramen bilaterally at C3-4, C4-5, C5-6 ([id number], [id number] x2); placement of biomechanical i ntervertebral device C3-4, C4-5. C5-6; placement of a 4-level cervical plate C3, C4, C5, C6 ([id number]); microscopy; same-incision bone graft harvest. FINDINGS: ESTIMATED BLOOD LOSS: 50 cc. INDICATIONS: The patient is an elderly gentleman, who had a history of coronary artery disease, who suffered trauma earlier this year, had numbness and tingling and was seen in the emergency room wit h quite bad burning dysesthesias at the time. They did slowly improve over time but an MRI demonstr ated cord compression with some mild myelomalacia at C3-4 and C5-6, and there was some more moderate changes at C4-5. He also had spondylosis but no significant spinal canal or foraminal stenosis at C6-7, although certainly this level was bad enough that many might have chosen to do surgery there. I suggested surgery to the patient. 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 I did explain that at some point in the future it wo uld almost certainly become necessary and he understood this and wanted to proceed. He knew there w as risk of pseudoarthrosis, adjacent segment disease, esophageal injury, carotid injury, recurrent l aryngeal nerve injury and dysphagia, and he wanted to proceed. We were going to proceed with kelsy dennis in a more timely fashion but he had undergo cardiac revascularization as part of his preoperative workup. He was found have terrible re-stenosis at the sites of his cardiac anastomoses from a prior surgery. This is the normal evolution of his disease and it was felt that he needed a redo CABG an d he had this and recovered from this quite nicely. He was then sent back to us to consider surgery and deemed a low-risk at this point by his vp strategic planning. DESCRIPTION OF PROCEDURE: The patient was taken to the operating room, placed in supine position. General anesthesia was begun. A midline shoulder roll was placed. Arms were tucked at the sides. His head was kept neutral. The occiput gently extended. He was sterilely prepped and draped in the usual fashion. We made a transverse incision in a dominant neck crease on the patient's right-hand side. The subcutaneous tissue was dissected using Bovie cautery down through the platysma. We use d a combination of sharp and blunt dissection medial to the sternocleidomastoid and lateral to the s trap muscles, down to the prevertebral space. Localizing x-ray was taken. The longus colli muscles were taken off the spine at C3, C4, C5 and C6. They were dissected and retracted laterally. We th en drilled the bony osteophytes bilaterally at C5-6, C4-5, and C3-4. We harvested some of these for autologous grafting purposes. Placed distraction pins at C3-4, distracted this disk, and under the microscope removed the disk and cartilaginous endplates. We drilled subchondral bone and harvested this for autologous grafting purposes. We then opened the PLL and decompressed the thecal sac and the neural foramina bilaterally. There was severe stenosis at this level and we got a great decompr ession. It was predominantly a soft disk but we also removed some bony osteophytes that were causin g spinal stenosis and we were happy with our decompression. We chose a 13 x 16 x 8 mm implant. It w as lordotic. Fashioned to fit in the space and packed with bone autograft. It was inserted at C3-4 . I was happy with this device. It fit from uncinate process to uncinate process. At C4-5 and C5-6 , we ultimately put a somewhat larger implant in. We did move our distraction pins. Went down to t he C4-5 level, where under the operating microscope, we removed the disk and the cartilaginous endpl ates. We drilled and harvested subchondral bone, and then opened the PLL and decompressed the theca l sac and the neural foramen bilaterally. We decorticated the subchondral bone to create arthrodesi s and at this level chose an 8 x 14 x 18 mm implant, packed it with bone autograft, and it was inser marilyn at C4-5. It was adjusted to fit properly in the space. We then turned our attention to C5-6, w here we moved our distraction pins, removed the disk and the cartilaginous endplates. We drilled an d harvested subchondral bone for autologous grafting purposes. I opened the PLL and decompressed th e thecal sac and the neural foramen bilaterally. Here, there was really remarkable spinal stenosis with a large posterior osteophyte coming off the C6 vertebral body causing severe spinal stenosis at that level, and a great decompression was performed. We then chose our implant the same as at C4-5 , packed it with autologous bone dust, inserted it at C5-6 and got it to fit nicely. An x-ray was rowdy crump. We looked at the implants. We then adjusted them accordingly. We then prepared the ventral surface of the vertebral bodies for acceptance of the plate. We looked at 51 mm plate, which I deci ded was too short. We then chose a 57 mm plate and sized it with radiographs. We then increased th e lordosis on the plate after sizing it with radiographs. We placed a single screw at C3, a single screw at C6, and I was happy with the positioning of these screws. We then put the remaining 6 scre ws in for a total of 8 screws and they were locked according to company specification. This was brooke ified with people in the room. A final x-ray was taken. All the hardware was in excellent position . We were happy with this. We then meticulously inspected the prevertebral space. There was no evidence of bleeding. We did c oagulate some of the edges of the longus colli muscles to ensure meticulous hemostasis. We then deborah maxine some 0.25% Marcaine with epinephrine in the wound, and then closed the incision in multiple laye rs using Vicryl sutures. Steri-Strips were applied to the skin. The patient was reversed from anes thesia, extubated, and transferred to recovery room in stable condition. There were no complication s. COMPLICATIONS: None. INSTRUMENTATION: C-spine Cabo plate with a [place] PEEK of 13 x 16 x 8 at C3-4, of 14 x 18 x 8 at L4-5, and a 14 x 18 x 8 at C5-6. We used 14 mm screws at C3. We used 16 mm screws at C4, C5 an d C6. It was a 57 mm plate. COMPLICATIONS: None. /[id number]/MODL
[2017-06-25] MEDS: ceFAZolin 2 GM/DEXTROSE 100 ML IV SCH (21:25)
[2017-06-25] MEDS: NS 1,000 ML IV SCH (21:26)
[2017-06-25] MEDS: METHOCARBAMOL 750 MG TAB PO PRN (21:26)
[2017-06-25] MEDS: ACETAMINOPHEN 500 MG TAB PO SCH (21:29)
[2017-06-25] MEDS: FAMOTIDINE 20 MG TAB PO SCH (21:29)
[2017-06-26] MEDS: SENNOSIDES/DOCUSATE SODIUM TAB PO SCH ×3 (01:36→21:23)
[2017-06-26] MEDS: oxyCODONE IR 5 MG TAB PO PRN ×5 (03:18→21:22)
[2017-06-26] MEDS: METHOCARBAMOL 750 MG TAB PO PRN ×4 (03:18→21:33)
[2017-06-26 05:41] LABS: ANION GAP 11 mEq/L (8-16); CALCIUM 8.8 mg/dL (8.5-10.4); CARBON DIOXIDE 22 mEq/l (22-31); CHLORIDE 104 mEq/L (97-110); CREATININE 0.9 mg/dL (0.7-1.3); GLOMERULAR FILTRATION RATE > 60; GLUCOSE 151 mg/dL (70-100); POTASSIUM 4.6 mEq/L (3.5-5.2); SODIUM 137 mEq/L (134-144)
[2017-06-26 05:42] LABS: % IMMATURE GRANULYOCYTES 0.5 % (0.0-1.1); ABSOLUTE IMMATURE GRANULOCYTES 0.05 10^3/uL (0.00-0.10); ADD DIFF? NO; ADD MORPH? NO; ADD SCAN? NO; ATYPICAL LYMPHOCYTE FLAG 0 (0-99); FRAGMENT RBC FLAG 0 (0-99); HEMATOCRIT 36.8 % (40.0-51.0); HEMOGLOBIN 12.5 g/dL (13.7-17.5); LEFT SHIFT FLG 0 (0-99); LIPEMIA HEMOLYSIS FLAG 90 (0-99); MEAN CELL HEMOGLOBIN 32.5 pg (27.9-34.1); MEAN CELL VOLUME 95.6 fL (81.5-99.8); MEAN PLATELET VOLUME 9.9 fL (8.7-11.7); PLATELET CLUMPS FLAG 0 (0-99); PLATELET COUNT 165 10^3/uL (150-400); RED BLOOD CELL COUNT 3.85 10^6/uL (4.40-6.38); RED CELL DISTRIBUTION WIDTH 16.3 % (11.5-15.2)
[2017-06-26] MEDS: ACETAMINOPHEN 500 MG TAB PO SCH ×3 (06:12→21:20)
[2017-06-26] MEDS: ceFAZolin 2 GM/DEXTROSE 100 ML IV SCH (06:14)
--- NOTE | 2017-06-26 08:13 | NEUSURGPN ---
Date of Surgery: 06/25/17 Post Op Day: 1 Assessment/Plan: Assessment: 71 yr old s/p ACDF C3-4, C4-5, C5-6 for bilateral arm symptoms right greater than left POD#1 Plan: -Pain controlled this am with Oxycodone and Robaxin -Right arm pain gone, has some expected bilateral shoulder pain -Patient feels he is not able to raise his right arm as well, has history of right shoulder ortho problems, strength intact -PT/OT/ST -Patient has cervical collar -Post op xrays today -May transfer to floor -Please call neurosurgery with questions/concerns Subjective: Patient has some bilateral shoulder pain Objective: PERRLA EOMI 5/5 BUE 5/5 BLE sensation intact to light touch BLE Dressing CDI Neuro Check Frequency: per routine Urinary Catheter in Place: No Catheter Insertion Date: 06/25/17 - Physician Discussed Patient with : Javier Patient Seen by : Javier Neurosurgery Physical Exam - Vitals, I&O, Labs I and O 06/25/17 06/26/17 06/27/17 05:59 05:59 05:59 Intake Total 1506 Output Total 950 Balance 556 Weight 72.575 kg Intake: Oral (ml) 550 IV Intake (ml) 956 Output: Urine (ml) 950 Catheter 950 Vital Signs Temp Pulse Resp BP Pulse Ox 36.6 C 79 14 151/85 H 99 06/26/17 07:45 06/26/17 07:45 06/26/17 07:45 06/26/17 07:45 06/26/17 07:45 Laboratory Results 06/26/17 05:09 06/26/17 05:09 ICD10 Worksheet Patient Problems: Problems Problem Status Onset Acute blood loss anemia Acute CAD (coronary artery disease) Acute CAD (coronary artery disease) of bypass graft Acute Chronic Disease Mgmt/Transitional Care Acute Hypertension Acute Mitral valve regurgitation Acute S/P CABG x 4 Acute ~02/12/17 S/P mitral valve repair Acute ~02/12/17
[2017-06-26] MEDS: FAMOTIDINE 20 MG TAB PO SCH ×2 (08:28→21:21)
[2017-06-26] MEDS: CEPACOL LOZENGE PO PRN ×3 (08:29→23:55)
[2017-06-26] MEDS: METOPROLOL TARTRATE 25 MG TAB PO SCH ×2 (09:42→21:21)
[2017-06-26] MEDS: PRESERVISION AREDS2 FORMULA EYE VIT 1 EACH PO SCH (09:42)
[2017-06-26] MEDS: NS 1,000 ML IV SCH (12:06)
--- NOTE | 2017-06-26 16:18 | ASMTCMCOM ---
CM Note CM Note Notes: PT/OT have cleared pt. Anticipate d/c home with no CM needs but will re-assess prior to discharge f or any unanticipated needs. Date Signed: 06/26/2017 04:17 PM Electronically Signed By:Danitza Perez
--- NOTE | 2017-06-26 17:10 | ASMTCASEMG ---
Living Arrangements What is your living arrangement? Who do you live Answers: With Spouse with? Discharge Plan Comments Coordination Status Comments Notes: Pt had a ACDF c3-4, 4-5, 5-6 and in a Harmon J collar. In order to have this surgery he had a CABG . He c/o bilateral shoulder pain. Pt is 61yo. Need to have therapies eval for D/C needs. CM to follow Date Signed: 06/26/2017 05:10 PM Electronically Signed By:Yandy Seo
[2017-06-26] MEDS: ZOLPIDEM TARTRATE 5 MG TAB PO PRN (23:55)
[2017-06-27] MEDS: CEPACOL LOZENGE PO PRN ×3 (00:44→21:19)
[2017-06-27] MEDS: oxyCODONE IR 5 MG TAB PO PRN ×3 (04:55→21:27)
[2017-06-27] MEDS: ACETAMINOPHEN 500 MG TAB PO SCH ×3 (06:03→21:19)
[2017-06-27] MEDS ORDERED: methylPREDNISolone SOD SUCC 125 MG/2 ML VIAL IVP ONE (07:07)
--- NOTE | 2017-06-27 07:11 | NEUSURGPN ---
Date of Surgery: 06/25/17 Post Op Day: 2 Assessment/Plan: Assessment: 71 yr old s/p ACDF C3-4, C4-5, C5-6 for bilateral arm symptoms right greater than left POD #2 Plan: -Pain controlled this am with Oxycodone and Robaxin -pt having some rhonchi-Dr Herrera aware. Ordered one time dose of Solumedrol/RT ordered as well -CXR ordered -Right arm pain gone, has some expected bilateral shoulder pain that is a bit better -Patient feels he is not able to raise his right arm as well, has history of right shoulder ortho problems, strength intact -PT/OT/ST-CPM -Patient has cervical collar-tolerating well -Post op xrays look good -Continue with IP 3N -call with any questions or concerns -advance diet per ST -Please call neurosurgery with questions/concerns Subjective: Awake and alert. NAD. Tolerating some PO intake, voiding. No f/c/n/v/d. Objective: AAO x 3, PERRLA/EOMI no droop CN 2-12 grossly intact +lt touch 5/5 BUE/BLE = CDI Neuro Check Frequency: per routine Urinary Catheter in Place: No Catheter Insertion Date: 06/25/17 - Physician Discussed Patient with Dr.: Javier Patient Seen by : Javier Neurosurgery Physical Exam - Vitals, I&O, Labs I and O 06/26/17 06/27/17 06/28/17 05:59 05:59 05:59 Intake Total 1506 300 Output Total 950 1050 Balance 556 -750 Weight 72.575 kg Intake: Oral (ml) 550 IV Intake (ml) 956 IV Infused (ml) 300 Ns 1,000 ml @ 75 mls/hr 300 IV CONT DASHA Rx#: [id number] Output: Urine (ml) 950 1050 Catheter 950 Urinal 1050 Other: Number of Voids Toilet 3 Urinal 1 Vital Signs Temp Pulse Resp BP Pulse Ox 36.9 C 72 18 144/86 H 94 06/27/17 04:29 06/27/17 04:29 06/27/17 04:29 06/27/17 04:29 06/27/17 04:29 Laboratory Results 06/26/17 05:09 06/26/17 05:09 ICD10 Worksheet Patient Problems: Problems Problem Status Onset Acute blood loss anemia Acute CAD (coronary artery disease) Acute CAD (coronary artery disease) of bypass graft Acute Chronic Disease Mgmt/Transitional Care Acute Hypertension Acute Mitral valve regurgitation Acute S/P CABG x 4 Acute ~02/12/17 S/P mitral valve repair Acute ~02/12/17
[2017-06-27] MEDS ORDERED: ALBUTEROL 3 ML DEYVIAL IH PRN (08:07)
[2017-06-27] MEDS: METOPROLOL TARTRATE 25 MG TAB PO SCH ×2 (09:08→21:20)
[2017-06-27] MEDS: SENNOSIDES/DOCUSATE SODIUM TAB PO SCH ×2 (09:08→21:22)
[2017-06-27] MEDS: FAMOTIDINE 20 MG TAB PO SCH ×2 (09:10→21:20)
[2017-06-27] MEDS: PRESERVISION AREDS2 FORMULA EYE VIT 1 EACH PO SCH (09:10)
[2017-06-27] MEDS: METHOCARBAMOL 750 MG TAB PO PRN (09:14)
[2017-06-27] MEDS: ZOLPIDEM TARTRATE 5 MG TAB PO PRN (21:27)
[2017-06-27 23:43] VITALS: TEMP 97.7
[2017-06-28] MEDS: oxyCODONE IR 5 MG TAB PO PRN (03:20)
[2017-06-28] MEDS: CEPACOL LOZENGE PO PRN (03:22)
[2017-06-28] MEDS: METHOCARBAMOL 750 MG TAB PO PRN (03:22)
[2017-06-28] MEDS: ACETAMINOPHEN 500 MG TAB PO SCH (05:55)
[2017-06-28 08:20] VITALS: BP 163/77; PULSE 90; RESP 18; O2SAT 91
--- NOTE | 2017-06-28 08:29 | NEUSURGPN ---
Date of Surgery: 06/25/17 Post Op Day: 3 Assessment/Plan: Assessment: 71 yr old s/p ACDF C3-4, C4-5, C5-6 for bilateral arm symptoms right greater than left Plan: -Pain controlled this am with Oxycodone and Robaxin -Right arm pain gone, has some expected bilateral shoulder pain -Patient feels he is not able to raise his right arm as well, has history of right shoulder ortho problems, strength intact -PT/OT/ST -Patient has cervical collar -Post op xrays stable -May discharge home today if cleared by PT/OT/ST -Please call neurosurgery with questions/concerns Subjective: Patient feeling better, continues to have ROM issues with right shoulder Objective: AAO x 3, PERRLA/EOMI no droop CN 2-12 grossly intact +lt touch 5/5 BUE/BLE = Incision CDI Neuro Check Frequency: per routine Urinary Catheter in Place: No Catheter Insertion Date: 06/25/17 - Physician Discussed Patient with : Javier Patient Seen by : Javier Neurosurgery Physical Exam - Vitals, I&O, Labs I and O 06/27/17 06/28/17 06/29/17 05:59 05:59 05:59 Intake Total 300 750 Output Total 1050 Balance -750 750 Intake: Oral (ml) 750 IV Infused (ml) 300 Ns 1,000 ml @ 75 mls/hr 300 IV CONT DASHA Rx#: [id number] Output: Urine (ml) 1050 Urinal 1050 Other: Number of Voids Toilet 3 3 Urinal 1 Vital Signs Temp Pulse Resp BP Pulse Ox 36.5 C 90 18 163/77 H 91 L 06/28/17 08:19 06/28/17 08:19 06/28/17 08:19 06/28/17 08:19 06/28/17 08:19 Laboratory Results 06/26/17 05:09 06/26/17 05:09 ICD10 Worksheet Patient Problems: Problems Problem Status Onset Acute blood loss anemia Acute CAD (coronary artery disease) Acute CAD (coronary artery disease) of bypass graft Acute Chronic Disease Mgmt/Transitional Care Acute Hypertension Acute Mitral valve regurgitation Acute S/P CABG x 4 Acute ~02/12/17 S/P mitral valve repair Acute ~02/12/17
[2017-06-28] MEDS: METOPROLOL TARTRATE 25 MG TAB PO SCH (08:48)
[2017-06-28] MEDS: SENNOSIDES/DOCUSATE SODIUM TAB PO SCH (08:48)
[2017-06-28] MEDS: PRESERVISION AREDS2 FORMULA EYE VIT 1 EACH PO SCH (08:49)
[2017-06-28] MEDS: FAMOTIDINE 20 MG TAB PO SCH (08:50)
[2017-06-28] MEDS ORDERED: ENOXAPARIN 40 MG/0.4 ML SYR SC SCH (09:00)
--- NOTE | 2017-06-28 15:24 | ASDISCHSUM ---
Discharge Information Plan Status:Home with No Needs Medically Cleared to Leave: Discharge Date:06/28/2017 11:53 AM CM D/C Disposition: ADT D/C Disposition:Home, Routine, Self-Care Projected Discharge Date:06/28/2017 11:53 AM Transportation at D/C: Discharge Delay Reason: Follow-Up Date:06/28/2017 11:53 AM Discharge Slot: Final Diagnosis: Placement Information Patient Contact Information Contact Name:[place] Relationship: Address:[address] [place] [address] [address] City:[id number] Alternate Phone: [facility]/Zip Code:[place] [address] Email: Financial Information Financial Class: Primary Plan Desc:MEDICARE INPATIENT Primary Plan Number:[id number] Secondary Plan Desc:[employer]/MDR SUPPLEMENT Secondary Plan Number:[id number] Assessment Information [facility] Initial CM Assessment Living Arrangements What is your living Answers: With Spouse arrangement? Who do you live with? Discharge Plan Comments Coordination Status Comments Notes: Pt had a ACDF c3-4, 4-5, 5-6 and in a [facility]. 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 He c/o bilateral shoulder pain. Pt is 61yo. Need to have therapies eval for D/C needs. CM to follow Date Signed: 06/26/2017 05:10 PM Electronically Signed By:Yandy Seo [facility] CM Progress Note CM Note CM Note Notes: PT/OT have cleared pt. Anticipate d/c home with no CM needs but will re-assess prior to discharge for any unanticipated needs. Date Signed: 06/26/2017 04:17 PM Electronically Signed By:Danitza Perez [facility] CM Progress Note CM Note CM Note Notes: PT/OT continue to clear pt who will d/c w friend/family support Date Signed: 06/28/2017 03:23 PM Electronically Signed By:Samara James Intervention Information Intervention Type:*IM-Signed Date of Service:06/28/2017 10:39 AM Patient Type:Inpatient Staff Member:Zuleika English Hours: Discipline: Severity: Comment:
== END 2017-06-28 11:53 | disposition home or self-care (01) | DRG 472 ==
LOC: F3E 06-25 11:29 → F2N 06-25 21:15 → F3N 06-26 12:11
PROVIDERS: ADMIT Neurological Surgery; ATTEND Neurological Surgery
PROC: 00NW0ZZ Release Cervical Spinal Cord, Open Approach (ICD-10-PCS; principal; 2017-06-25 14:15)
PROC: 0RG20A0 Fusion of 2 or more Cervical Vertebral Joints with Interbody Fusion Device, Anterior Approach, Anterior Column, Open Approach (ICD-10-PCS; principal; 2017-06-25 14:15)
DX: M48.02 Spinal stenosis, cervical region (principal); M47.12 Other spondylosis with myelopathy, cervical region; M47.22 Other spondylosis with radiculopathy, cervical region; I25.10 Atherosclerotic heart disease of native coronary artery without angina pectoris; I10 Essential (primary) hypertension; Z95.1 Presence of aortocoronary bypass graft; I25.2 Old myocardial infarction; G47.30 Sleep apnea, unspecified
CPT/HCPCS: 92526-GN; 92610-GN; 97116-GP; 97161-GP; 97165-GO; C1713; G8978-GP-CI; G8979-GP-CI; G8980-GP-CI; G8987-GO-CI; G8988-GO-CI; G8989-GO-CI; G8996-GN-CK; G8997-GN-CI; G8998-GN-CJ; J0171; J0690; J1100; J1170; J1650; J2370; J2704; J3010; J3490